=== PATIENT | female | born 1980 | race Caucasian/White ===

== ENCOUNTER 2022-03-10 06:57 | Emergency (ER) | payer OTHER ==
[~2022-03-10] VITALS: Ht 160 cm; Wt 125.0 kg
[2022-03-10 07:33] LABS: Mean Corpuscular Volume 84.3 fL (80.0-100.0)
[2022-03-10 07:37] LABS: Basophils # (auto) 0 10 ^3/uL (0-0.2); Basophils % (auto) 0.5 % (0.0-2.0); Eosinophils # (auto) 0.4 10 ^3/uL (0-0.8); Eosinophils % (auto) 3.8 % (0.0-7.0); Hematocrit 37.9 % (36.0-46.0); Hemoglobin 12.2 g/dL (12.2-16.2); Lymphocytes # (auto) 3.5 10 ^3/uL (0.4-5.4); Lymphocytes % (auto) 37.7 % (10.0-50.0); Mean Corpuscular Hemoglobin 27.2 pg (28.0-32.0); Mean Corpuscular Hgb Conc. 32.3 g/dL (32.0-36.0); Monocytes # (auto) 0.6 10 ^3/uL (0-1.3); Monocytes % (auto) 6.8 % (0.0-12.0); Neutrophils # (auto) 4.7 10 ^3/uL (1.6-8.6); Neutrophils % (auto) 51.2 % (37.0-80.0); Red Cell Distribution Width 15.3 % (11.8-14.3); White Blood Cell 9.2 10^3/uL (4.4-10.8)
[2022-03-10] MEDS ORDERED: IOHEXOL 350 MG/ML 100ML IJ ONE (07:42)
[2022-03-10 07:44] LABS: Albumin 3.3 g/dL (3.4-5.0); Calcium 9.1 mg/dL (8.5-10.1); Magnesium 1.9 mg/dL (1.6-2.6); Potassium 4.2 mmol/L (3.5-5.1)
[2022-03-10 07:46] LABS: BUN/Creatinine Ratio 21.7
[2022-03-10 07:48] LABS: Bilirubin, Total 0.2 mg/dL (0.2-1.0); Total Protein 7.4 g/dL (6.4-8.2)
[2022-03-10 08:30] LABS: Urine Bacteria MANY /hpf (None Seen); Urine Blood 3+ /uL (Negative); Urine Specific Gravity 1.018 (1.001-1.035); Urine WBC 2257 /hpf (0 - 5); Urine WBC Clumps PRESENT /hpf (None Seen)
[2022-03-10] MEDS ORDERED: CEPHALEXIN 250 MG CAP PO ONE (09:30)
[2022-03-10] MEDS ORDERED: CEPH-322 PO (09:40)
[2022-03-10 10:42] VITALS: BP 125/84
== END 2022-03-10 10:48 | disposition home or self-care (01) ==
LOC: ER 07:02
DX: F41.9 Anxiety disorder, unspecified (principal); N39.0 Urinary tract infection, site not specified; F32.9 Major depressive disorder, single episode, unspecified; I10 Essential (primary) hypertension; Z88.6 Allergy status to analgesic agent; Z90.710 Acquired absence of both cervix and uterus; Z90.49 Acquired absence of other specified parts of digestive tract; Z98.890 Other specified postprocedural states
CPT/HCPCS: 36415; 71045; 71275; 80053; 81001; 83735; 83880; 84484; 85025; 93005; 99285; Q9967

== ENCOUNTER 2024-12-22 14:41 | Inpatient (IN) | payer OTHER ==
[~2024-12-22] VITALS: Ht 160 cm; Wt 101.1 kg
[~2024-12-22 14:41] MED LIST: CEPH250C PO
[2024-12-22] MEDS ORDERED: ACETAMINOPHEN 325 MG TAB PO PRN (17:30)
[2024-12-22] MEDS ORDERED: HYDROcodone-ACET 5/325MG TAB PO PRN (17:30)
[2024-12-22] MEDS: SODIUM CHLORIDE 0.9% 1,000 ML IV SCH (17:44)
--- NOTE | 2024-12-22 17:45 | DVHHP2 ---
History of Present Illness Reason for Visit: right flank pain History of Present Illness Lauryn Walker is a 44-year-old female with past medical history of depression, who was transferred from [facility] for higher level of care due to bilateral, obstructing, staghorn, renal calculi. Patient states she has been having flank pain for a few months. She has not been able to seek medical help due to being homeless. The pain became too severe causing her to go to [facility]. Psych: Depression Past Surgical History: Appendectomy, Hysterectomy Smoke: No ALCOHOL: none Drugs: None Lives: Homeless Review of Systems Constitutional: No: Fever, Chills, Sweats, Weakness, Malaise, Other Eyes: No: Pain, Vision change, Conjunctivae inflammation, Eyelid inflammation, Other, Redness ENT: No: Ear pain, Ear discharge, Nose pain, Nose discharge, Nose congestion, Mouth pain, Mouth swelling, Throat pain, Throat swelling, Other Respiratory: No: Cough, Dry, Shortness of breath, SOB with excertion, Wheezing, Hemoptysis, Pleuritic Pain, Sputum, Wheezing, Other Cardiovascular: No: Chest Pain, Palpitations, Orthopnea, Paroxysmal Noc. Dyspnea, Edema, Lt Headedness, Other Gastrointestinal: Nausea; No: Vomiting, Abdominal Pain, Diarrhea, Constipation, Melena, Hematochezia, Other Genitourinary: No Dysuria, No Frequency, No Incontinence, No Hematuria, No Retention, No Other Musculoskeletal: back pain (risght and left flank pain); No: other, neck pain, shoulder pain, arm pain, hand pain, leg pain, foot pain Skin: No: Rash, Lesions, Jaundice, Bruising, Other Neurological: No: Weakness, Numbness, Incoordination, Change in speech, Confusion, Seizures, Other Allergies: Coded Allergies: Acetaminophen (Verified Allergy, Mild, RASH, 03/10/22) Ibuprofen (Verified Allergy, Mild, RASH, 03/10/22) Exam General Appearance: Alert, Oriented X3, Cooperative HEENT: Atraumatic, PERRLA, Mucous membr. moist/pink Respiratory: Clear to auscultation, Normal air movement Cardiovascular: Normal S1, Normal S2 Abdominal: Normal bowel sounds Extremities: No clubbing, No cyanosis, No edema, Normal pulses, No tenderness/swelling Skin: No rashes, No breakdown, No significant lesion Neuro: Normal gait, Normal speech, Strength at 5/5 X4 ext Psych/Mental Status: Mental status NL, Mood NL Labs/Xrays CBC, CMP, PT/PTT ordered and pending, Chest X-Ray ordered and pending, SEPSIS Sepsis Screen Physician Orders Kub Abdomen Single View (12/22/24 14:54) Npo After Midnight (12/22/24 17:03) Npo (Nothing By Mouth) Diet (12/23/24 Breakfast) * Radiologist Consult (12/22/24 17:03) Obtain Consent For: (12/22/24 17:03) Obtain Consent For Anesthesia (12/22/24 17:03) Admit (12/22/24 17:30) Code Status (12/22/24 17:30) 0.9% Ns 1000 Ml (12/22/24 17:30) Hydrocodone-Acet 5/325mg Tab (Renner 5/32 (12/22/24 17:30) Ondansetron Hcl (Zofran) (12/22/24 17:30) Docusate Sodium Capsule (Colace Capsule) (12/22/24 17:30) Complete Blood Count (12/23/24 04:00) Comprehensive Metabolic Panel (12/23/24 04:00) Condition: Serious (12/22/24 17:30) Acetaminophen Tablet (Tylenol Tablet) (12/22/24 17:30) * Urology Consult (12/22/24 17:30) Assessment/Plan Assessment/Plan Assessment: Hydronephrosis with renal and ureteral calculus obstruction, Bilateral hydronephrosis, Bilateral obstructing renal calculi, Depression, Plan: Admit to Med-Surg, Urology consult, IV hydration, Pain management, PT/PTT, Regular diet, NPO after midnight, Plan discussed with: Patient My Orders Orders - SKYLER CUBA MANAGEMENT DEVELOPER Procedure Category Date Status Time Admit ADMIT 12/22/24 Transmitted 17:30 Code Status CODE 12/22/24 Transmitted 17:30 0.9% Ns 1000 Ml PHA 12/22/24 Transmitted 17:30 Hydrocodone-Acet PHA 12/22/24 Transmitted 5/325mg Tab (Renner 17:30 Ondansetron Hcl PHA 12/22/24 Transmitted (Zofran) 17:30 Docusate Sodium PHA 12/22/24 Transmitted Capsule (Colace 17:30 Complete Blood Count LAB 12/23/24 Verified 04:00 Comprehensive LAB 12/23/24 Verified Metabolic Panel 04:00 Condition: Serious ALEK 12/22/24 Transmitted 17:30 Acetaminophen Tablet PHA 12/22/24 Transmitted (Tylenol Tablet) 17:30 * Urology Consult CONS 12/22/24 Transmitted 17:30 Date of Service: Dec 22, 2024 Billing Provider: SKYLER CUBA Common Visit Codes: [id number] INP/OBS CARE (MOD) SKYLER CUBA Dec 22, 2024 17:45
[2024-12-22] MEDS: SODIUM CHLORIDE 0.9% 1,000 ML IV ONE (18:12)
[2024-12-22] MEDS: HYDROmorphone HCL 2 MG/ML VL/or syr IV PRN (18:20)
--- NOTE | 2024-12-22 18:40 | DVHINCON2 ---
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 Pt has had flank pain x 2 + weeks. No fevers or urinary complaints. Home Meds Active Scripts Cephalexin (KEFLEX CAPSULE) 250 Mg Cp, 250 MG PO QID for 7 Days, #28 TAB Prov:TRESSA PARRA MD 03/10/22 Past Medical History Patient Family History: Patient reports no known family medical history. Review of Systems Genitourinary: Pain H&P Exam Vital Signs Vital Signs Date Time Temp Pulse Resp B/P (MAP) Pulse Ox O2 Delivery O2 Flow Rate FiO2 12/22/24 18:20 82 17 131/87 12/22/24 17:12 Room Air* 0 21 General Appeara: Well developed, Well nourished, Normal Appearance, Obese Neuro/Mental St: Alert, Oriented Appearance: Appropriate appearance, Appropriate insight Eye contact/ Speech: Cooperative, Good eye contact, Normal speech Skin Exam: Normal inspection, Normal color, Warm/dry Assessment/Plan Problem List: (1) Staghorn kidney stones (2) Renal colic, bilateral Plan consult IR for left PCNL access NPO after midnight consent for left percutaneous nephrolithotomy Plan discussed with: Patient, Other SHAQ CABRERA BLUEPRINT DUPLICATOR Dec 22, 2024 18:40
[2024-12-22 19:06] LABS: Hematocrit 32.4 % (36.0-46.0); Hemoglobin 10.4 g/dL (12.2-16.2); Mean Corpuscular Hemoglobin 27.3 pg (28.0-32.0); Mean Corpuscular Volume 85.0 fL (80.0-100.0); Nucleated Red Blood Cells % 0.5 %
[2024-12-22 19:20] LABS: INR 1.03 (0.9-1.15); Partial Thromboplastin Time 25.6 SEC (24.5-34.5); Prothrombin Time 10.9 sec (9.3-11.8)
[2024-12-22 19:24] LABS: Albumin 3.4 g/dL (3.2-4.8); Alkaline Phosphatase 103 U/L (46-116); Anion Gap 8 (5-15); BUN/Creatinine Ratio 7.1 (10.0-20.0); Carbon Dioxide 28 mmol/L (20-31); Chloride 103 mmol/L (98-107); Sodium 139 mmol/L (136-145); Total Protein 7.2 g/dL (5.7-8.2)
[2024-12-22 19:37] LABS: Alanine Aminotransferase 67 U/L (7-40); Bilirubin, Total 0.2 mg/dL (0.2-1.0); Blood Urea Nitrogen 7 mg/dL (9-23); Calcium 8.4 mg/dL (8.7-10.4); Glucose 150 mg/dL (74-106); Potassium 3.4 mmol/L (3.5-5.1)
--- NOTE | 2024-12-22 19:56 | DVH ---
CHEST RADIOGRAPH Indication: Pre-Op Technique: Single frontal view of the chest was obtained COMPARISON: XR CHEST 1 VIEW on DOS: 12/18/24, CHEST PORTABLE on DOS: 03/10/22, CXRP on DOS: 03/10/22 FINDINGS: Lines and Tubes: None Lungs: Clear Pleura: No effusion. No pneumothorax. Cardiomediastinal contours: Unremarkable Bones: Unremarkable IMPRESSION: No acute disease.
--- NOTE | 2024-12-22 19:56 | DVH ---
Exam: XY KUB ABDOMEN SINGLE VIEW Indication: Bilateral staghorn stones Comparison: XR CHEST 1 VIEW on DOS: 12/18/24, XR NEPHROSTOMY TUBE PLACEMENT on DOS: 12/18/24, CT ABD/ PEL on DOS: 12/18/24, CT ABD/PEL W - IV on DOS: 12/04/24, CT ANGIO CHEST CONTRAST on DOS: 03/10/22 Technique: 1 radiographic views of the abdomen. Findings: Nonobstructive bowel gas pattern noted. Moderate volume colonic stool. There is no definite evidence for pneumoperitoneum. Staghorn calculi overlying bilateral renal shadows. Impression: Staghorn calculi overlying bilateral renal shadows.
[2024-12-22 20:00] VITALS: PULSE 86; RESP 17; O2SAT 97
[2024-12-22 21:00] VITALS: BP 162/97; PULSE 86; RESP 17; TEMP 98.2; O2SAT 97
[2024-12-23] VITALS (10 sets, daily range): BP systolic 138–162; BP diastolic 90–102; PULSE 74–101; RESP 14–20; TEMP 97.5–98.6; O2SAT 91–100
[2024-12-23 07:49] LABS: Albumin 3.4 g/dL (3.2-4.8); Alkaline Phosphatase 98 U/L (46-116); Anion Gap 10 (5-15); BUN/Creatinine Ratio 6.2 (10.0-20.0); Carbon Dioxide 28 mmol/L (20-31); Chloride 102 mmol/L (98-107); Glucose 85 mg/dL (74-106); Potassium 3.6 mmol/L (3.5-5.1); Sodium 140 mmol/L (136-145); Total Protein 7.3 g/dL (5.7-8.2)
[2024-12-23 07:50] LABS: Alanine Aminotransferase 59 U/L (7-40); Bilirubin, Total 0.2 mg/dL (0.2-1.0); Blood Urea Nitrogen 6 mg/dL (9-23); Calcium 8.6 mg/dL (8.7-10.4)
[2024-12-23 07:51] LABS: Hematocrit 31.7 % (36.0-46.0); Hemoglobin 10.5 g/dL (12.2-16.2); Mean Corpuscular Hemoglobin 27.1 pg (28.0-32.0); Mean Corpuscular Volume 81.9 fL (80.0-100.0); Nucleated Red Blood Cells % 0.1 %
--- NOTE | 2024-12-23 08:10 | ECG ---
[facility] Test Date: 2024-12-22 Test Time: 18:00:30 Pat Name: JAVIER VIEYRA Department: Room: 0250 B Gender: F Manager Medical Device: [id number] : 1980 Requested By: SKYLER CUBA Order Number: [id number] Reading MD: Emmett Cervantes Measurements Intervals [place] Rate: 87 P: 47 PA: 141 QRS: -16 QRSD: 96 T: 2 QT: 365 QTc: 439 Interpretive Statements Sinus rhythm Borderline left axis deviation Abnormal R-wave progression, late transition Nonspecific T abnormalities, diffuse leads Electronically Signed On 12-23-2024 13:08:48 PST by Emmett Cervantes Please click the below link to view image of tracing.
--- NOTE | 2024-12-23 13:04 | DVHPN2 ---
Subjective In bed with no pain Reviewed: H&P Changes from previous H/P or p: No Changes Eyes: No Pain, No Vision change, No Conjunctivae inflammation, No Eyelid inflammation, No Other, No Redness ENT: No Ear pain, No Ear discharge, No Nose pain, No Nose discharge, No Nose congestion, No Mouth pain, No Mouth swelling, No Throat pain, No Throat swelling, No Other Cardiovascular: No Chest Pain, No Palpitations, No Orthopnea, No Paroxysmal Noc. Dyspnea, No Edema, No Lt Headedness, No Other Respiratory: No Cough, No Dry, No Shortness of breath, No SOB with excertion, No Wheezing, No Hemoptysis, No Pleuritic Pain, No Sputum, No Other Gastrointestinal: Nausea; No Vomiting, No Abdominal Pain, No Diarrhea, No Constipation, No Melena, No Hematochezia, No Other Genitourinary: No Dysuria, No Frequency, No Incontinence, No Hematuria, No Retention, No Other Musculoskeletal: No other, No neck pain, No shoulder pain, No arm pain; back pain (risght and left flank pain); No hand pain, No leg pain, No foot pain Skin: No Rash, No Lesions, No Jaundice, No Bruising, No Other Objective Vitals Vital Signs Date Time Temp Pulse Resp B/P (MAP) Pulse Ox O2 Delivery O2 Flow Rate FiO2 12/23/24 11:56 89 18 141/94 12/23/24 09:00 97.8 98 97.8 12/23/24 07:44 Nasal Cannula* 1 24 Intake/Output Intake and Output 12/23/24 07:00 Intake Total 1020 ml Balance 1020 ml Intake Oral 10 ml IV Total 1010 ml # Voids 2 General Appearance: Alert, Oriented X3 HEENT: Atraumatic Lungs: Clear to auscultation Cardiovascular: Regular rate, Normal S1, Normal S2 Abdomen: Normal bowel sounds Medications Current Medications Medications Dose Ordered Sig/Heidi Route Start Time Stop Time Status Last Admin Dose Admin Sodium Chloride 1,000 ml @ 120 mls/hr Q8H20M IV 12/22/24 17:30 12/22/24 17:44 120 MLS/HR Acetaminophen/ Hydrocodone Bitart 1 tab Q4HP PRN PO 12/22/24 17:30 Hold Ondansetron HCl 4 mg Q4HP PRN IV 12/22/24 17:30 Docusate Sodium 100 mg BIDPRN PRN PO 12/22/24 17:30 Acetaminophen 650 mg Q6HP PRN PO 12/22/24 17:30 Hold Hydromorphone HCl 2 mg Q4HPRN PRN IV 12/22/24 17:45 12/23/24 10:21 2 MG Laboratory Results Laboratory Tests 12/23/24 05:52 Chemistry Test 12/22/24 18:24 12/23/24 05:52 Albumin 3.4 g/dL (3.2-4.8) 3.4 g/dL (3.2-4.8) Calcium Level 8.4 mg/dL (8.7-10.4) L 8.6 mg/dL (8.7-10.4) L Total Protein 7.2 g/dL (5.7-8.2) 7.3 g/dL (5.7-8.2) Coagulation Test 12/22/24 18:24 Prothrombin Time 10.9 sec (9.3-11.8) Prothrombin Time INR 1.03 (0.9-1.15) Activated Partial Thromboplast Time 25.6 SEC (24.5-34.5) LFT Test 12/22/24 18:24 12/23/24 05:52 Alanine Aminotransferase (ALT) 67 U/L (7-40) H 59 U/L (7-40) H Alkaline Phosphatase 103 U/L (46-116) 98 U/L (46-116) Aspartate Amino Transferase (AST) 47 U/L (13-40) H 38 U/L (13-40) Total Bilirubin 0.2 mg/dL (0.2-1.0) 0.2 mg/dL (0.2-1.0) Urinalysis Test 12/22/24 21:40 Urine Test Negative (Negative) Assessment/Plan Assessment/Plan Hydronephrosis with renal and ureteral calculus obstruction, Bilateral hydronephrosis, Bilateral obstructing renal calculi, Depression, Continue IV abx per urology going nephrolithotomy Plan discussed with: Patient Date of Service: Dec 23, 2024 Billing Provider: SUSAN WHITE MD Common Visit Codes: [id number] INP/OBS CARE(HIGH) SUSAN WHITE MD Dec 23, 2024 13:04
[2024-12-23] MEDS: MIDAZOLAM HCL 2MG/2ML 2ml VIAL (1mg/ml) ONE (13:08)
[2024-12-23] MEDS: IODIXANOL 320MG/ML 100ML BTL IV ONE (13:08)
[2024-12-23] MEDS: fentaNYL CITRATE 100 MCG/2 ML VL ONE (13:09)
[2024-12-23] MEDS: LIDOCAINE 2%HCL (LOCAL ANESTH.) INJ 20ML MDV ONE (13:09)
[2024-12-23] MEDS: CIPROFLOXACIN 400MG/200ML 200 ML IV ONE (13:57)
[2024-12-23] MEDS ORDERED: MEPERIDINE HCL (25 MG/ML) 1ML VIAL ONE (14:18)
[2024-12-23] MEDS ORDERED: MIDAZOLAM HCL 2MG/2ML 2ml VIAL (1mg/ml) ONE (14:19)
--- NOTE | 2024-12-23 14:20 | DVH ---
US US GUIDANCE FOR NEEDLE PLACEME, HISTORY: NEPHROSTOMY TUBE INSERTION TECHNICAL DATA: Transverse and longitudinal sonographic images were obtained of the left kidney. COMPARISON: CT ABD/PEL on DOS: 12/18/24, CT ABD/PEL W - IV on DOS: 12/04/24, CT ANGIO CHEST CONTRAST on DOS: 03/10/22 FINDINGS: IMPRESSION: Ultrasound guidance was used for a nephroureteral catheter placement for PCNL.
[2024-12-23] MEDS ORDERED: MORPHINE SULFATE 4 MG/ML SYR/VIAL IV PRN (14:30)
[2024-12-23] MEDS ORDERED: ONDANSETRON HCL 4 MG/2 ML VIAL IV PRN (14:30)
[2024-12-23] MEDS ORDERED: hydrALAZINE HCL 20 MG/ML VL IV PRN (14:30)
[2024-12-23] MEDS ORDERED: MIDAZOLAM HCL 2MG/2ML 2ml VIAL (1mg/ml) IV PRN (14:30)
[2024-12-23] MEDS ORDERED: fentaNYL CITRATE 100 MCG/2 ML VL ONE (14:53)
--- NOTE | 2024-12-23 15:06 | DVH ---
XY PERCUTANEOUS NEPHROSTOMY, HISTORY: Left staghorn kidney stone access for PCNL . PROCEDURE: Informed consent was obtained. The patient was placed on the fluoroscopic table in a prone position and IV sedation administered. The left flank was prepped with chlorhexidine which was allowed to dry and draped in the usual sterile fashion. Time out was performed. and the soft tissues infiltrated with 1% lidocaine local anesthetic. Under ultrasound guidance, a 21 gauge Accu Stick needle was advanced into a dilated upper pole posterior calyx and a contrast nephrostogram performed. Over a mandril wire, exchange was made to a non-vascular access set, through which was advanced an 0.035 wire. Wire and catheter were advanced down the ureter and into the bladder. A 5 Syriac KMP catheter advanced into the bladder. The catheter was secured in place. A sterile dressing was applied. No immediate complication was identified. Dap 100 FLUOROSCOPY TIME: 4.0 minutes. CONTRAST USED: 20 mL. SEDATION: Dr. Rodrigo Maurice was personally responsible for the administration of moderate sedation during the procedure performed, including the use of an independent trained observer who had no other duties during the procedure. The drugs utilized were IV fentanyl and versed (see nursing log for details). The total time of supervision by the attending physician was approximately 30 minutes. FINDINGS: Left staghorn stone in the renal pelvis. New 5 hungarian nephroureteral catheter via a posterior upper pole calyceal access, with distal end in the bladder. Contrast flows freely into the bladder. IMPRESSION: Left renal staghorn kidney stone status post placement of 5 hungarian left percutaneous nephroureteral sheath access for subsequent planned PCNL.
[2024-12-23] MEDS: IOHEXOL 300 MG/ML 100ML BOTTLE IJ ONE (15:15)
--- NOTE | 2024-12-23 15:45 | DVHNC2 ---
Procedure - PERATIVE REPORT Pre-op. Diagnosis: Renal Calculi, LEFT Post-op. Diagnosis: Same as pre-op diagnosis Operation: Percutaneous Nephrolithotripsy, LEFT Nephrostomy tube placement, LEFT Fluoroscopy Nephroscopy with laser lithotripsy and stone basket extraction, LEFT Anesthesia: General Indications: Patient presented with large symptomatic bilateral staghorn calculi. Left percutaneous access was obtained per interventional radiology service. The indications, risks, complications, alternatives and benefits of percutaneous nephrolithotomies (PCNL)were discussed with patient. All questions were encouraged and answered. Patient was aware of specific risks/complications, including but not limited to infections, bleeding, pain, renal injury, persistent stone disease requiring additional, possible other procedures such as laser or extracorporeal shockwave lithotripsies. Patient was also aware of alternatives of this surgery including open nephrolithotomy, ESWL, endoscopic retrograde laser lithotripsy and stent placement with chronic antibiotic management. Patient was competent and understood these risks and benefits and elected to proceed. Details of Procedure: Patient was taken to the operating room and underwent general endotracheal intubation. 16Fr Calderon catheter was placed while in supine position. Next, appropriate prone positioning was accomplished as well as the area of flank where the temporary nephrostomy tube, placed by Interventional Radiology, was included in the wide prepping and draping. Under fluoroscopy, the sensor guidewire was placed through the nephrostomy tube and positioned into the bladder. Dual lumen catheter was placed over the Sensor tip guidewire and second superstiff Amplatz guidewire was placed into the bladder as the safety guidewire. Next nephrostomy tract was dilated with UroMax balloon dilation system, followed by 26 F sheath placement. Rigid nephroscope was used to access the cavity where the large renal stones were identified in the mid/lower pole and renal pelvis. Ultrasonic lithoclast device was used to fragment and suction the stones. Once the stones were small enough, a three prong grasper was used to take them out. The torque on the kidney was too great for the nephroscope to reach the lower calyceal stones. At this point, a flexible cystoscope was used to evaluate the proximal ureter and no stones were identified. The left lower pole calyceal stones were identified and laser lithotripsy was performed. But due to bleeding, the visual attention was difficult and procedure was halted. Under fluoroscopy, the Amplatz guidewire was removed keeping the Senor guidewire in place through which a 16 Fr Osage catheter was placed and positioned over the guidewire into the renal pelvis in an antegrade fashion. Proper placement was verified. The subcutaneous tissue and the skin were closed with Two 0 chromic suture. Patient was placed in supine, extubated and taken to RR in stable condition. Calderon catheter remained in place. All counts were correct. Specimens: Stone fragments Complications: None Findings: large Staghorn calculus treated successfully with PCNL EBL: 50 ml Notes: The patient will need to undergo left endoscopic laser lithotripsy with renal evacuation using suction catheter sheath in 4 weeks LILA PIERRE MD Dec 23, 2024 15:45
[2024-12-23] MEDS: HYDROmorphone HCL 2 MG/ML VL/or syr IV PRN (16:13)
[2024-12-23] MEDS ORDERED: SUGAMMADEX 200mg/2ml Vial (100MG/ML) IV ONE (16:34)
[2024-12-23] MEDS: HYDROmorphone HCL 2 MG/ML VL/or syr ONE (18:10)
[2024-12-23] MEDS: KETOROLAC TROMETH 30 MG/ML 1ML VIAL IV ONE (18:10)
[2024-12-23] MEDS: SUCCINYLCHOLINE CHLORIDE 20 MG/ML 10ML VIAL IV ONE (18:10)
--- NOTE | 2024-12-23 18:16 | DVH ---
C-ARM FLUOROSCOPY: PROCEDURE: Laser lithotripsy and stent place FLUOROSCOPY TIME: 277.4 seconds Air Kerma: 89.89 mgy FINDINGS: Spot intraoperative C arm radiographs demonstrating lithotripsy and stent placement. IMPRESSION: 1. Please refer to surgical report for detailed findings. 2. Only 1 image received is the dose summary sheet
--- NOTE | 2024-12-23 20:07 | DVH ---
Exam: XY KUB ABDOMEN SINGLE VIEW Indication: LEFT LASER LITHO AND STENT PLACEMENT Comparison: XY KUB ABDOMEN SINGLE VIEW on DOS: 12/22/24, CT ABD/PEL on DOS: 12/18/24 Technique: Single Fluoroscopic view of the abdomen. Findings /impression: Placement of a right percutaneous nephrostomy tube. Opacification of the right renal collecting system demonstrating moderate hydronephrosis. Total radiation dose: 89.89 mGy
[2024-12-24] VITALS (7 sets, daily range): BP systolic 110–137; BP diastolic 78–90; PULSE 88–95; RESP 16–20; TEMP 97.7–98.5; O2SAT 94–99
--- NOTE | 2024-12-24 12:08 | DVHPN2 ---
Subjective s/p nephrostomy and having severe pain this morning Reviewed: H&P Changes from previous H/P or p: No Changes Eyes: No Pain, No Vision change, No Conjunctivae inflammation, No Eyelid inflammation, No Other, No Redness ENT: No Ear pain, No Ear discharge, No Nose pain, No Nose discharge, No Nose congestion, No Mouth pain, No Mouth swelling, No Throat pain, No Throat swelling, No Other Cardiovascular: No Chest Pain, No Palpitations, No Orthopnea, No Paroxysmal Noc. Dyspnea, No Edema, No Lt Headedness, No Other Respiratory: No Cough, No Dry, No Shortness of breath, No SOB with excertion, No Wheezing, No Hemoptysis, No Pleuritic Pain, No Sputum, No Other Gastrointestinal: Nausea; No Vomiting, No Abdominal Pain, No Diarrhea, No Constipation, No Melena, No Hematochezia, No Other Genitourinary: No Dysuria, No Frequency, No Incontinence, No Hematuria, No Retention, No Other Musculoskeletal: No other, No neck pain, No shoulder pain, No arm pain; back pain (risght and left flank pain); No hand pain, No leg pain, No foot pain Skin: No Rash, No Lesions, No Jaundice, No Bruising, No Other Objective Vitals Vital Signs Date Time Temp Pulse Resp B/P (MAP) Pulse Ox O2 Delivery O2 Flow Rate FiO2 12/24/24 09:00 98.3 94 20 136/86 (103) 94 98.3 12/24/24 07:42 Nasal Cannula* 2 28 Intake/Output Intake and Output 12/24/24 05:00 Intake Total 1300 ml Output Total 600 ml Balance 700 ml Intake Oral 200 ml IV Total 1100 ml Output Urine Total 600 ml General Appearance: Alert, Oriented X3 HEENT: Atraumatic Lungs: Clear to auscultation Cardiovascular: Regular rate, Normal S1, Normal S2 Abdomen: Normal bowel sounds Medications Current Medications Medications Dose Ordered Sig/Heidi Route Start Time Stop Time Status Last Admin Dose Admin Sodium Chloride 1,000 ml @ 120 mls/hr Q8H20M IV 12/22/24 17:30 12/23/24 22:57 120 MLS/HR Acetaminophen/ Hydrocodone Bitart 1 tab Q4HP PRN PO 12/22/24 17:30 Hold Ondansetron HCl 4 mg Q4HP PRN IV 12/22/24 17:30 Docusate Sodium 100 mg BIDPRN PRN PO 12/22/24 17:30 Acetaminophen 650 mg Q6HP PRN PO 12/22/24 17:30 Hold Hydromorphone HCl 2 mg Q4HPRN PRN IV 12/22/24 17:45 12/24/24 08:17 2 MG Laboratory Results Laboratory Tests 12/23/24 05:52 Urinalysis Test 12/22/24 21:40 Urine Test Negative (Negative) Assessment/Plan Assessment/Plan Hydronephrosis with renal and ureteral calculus obstruction, Bilateral hydronephrosis, Bilateral obstructing renal calculi, Depression, Continue IV abx s/p nephrostomy and nephrolithotomy with severe pain Dispo: Possible DC tomorrow Plan discussed with: Patient My Orders Orders - SUSAN WHITE MD Procedure Category Date Status Time Kub Abdomen Single XY 12/23/24 Resulted View 15:43 C Arm Fluoroscopy Up XY 12/23/24 Resulted To 60min 15:46 Date of Service: Dec 24, 2024 Billing Provider: SUSAN WHITE MD Common Visit Codes: [id number] INP/OBS CARE(HIGH) SUSAN WHITE MD Dec 24, 2024 12:08
[2024-12-24] MEDS ORDERED: PROPOFOL 10 MG/ML 20 ML IV ONE (13:43)
[2024-12-24] MEDS ORDERED: ROCURONIUM 10MG/ML 10ML VIAL IV ONE (13:44)
[2024-12-25] VITALS (8 sets, daily range): BP systolic 132–179; BP diastolic 87–110; PULSE 74–102; RESP 16–21; TEMP 97.9–98.6; O2SAT 95–100
--- NOTE | 2024-12-25 09:37 | DVHPN2 ---
Subjective s/p nephrostomy and having severe pain this morning Reviewed: H&P Changes from previous H/P or p: No Changes Eyes: No Pain, No Vision change, No Conjunctivae inflammation, No Eyelid inflammation, No Other, No Redness ENT: No Ear pain, No Ear discharge, No Nose pain, No Nose discharge, No Nose congestion, No Mouth pain, No Mouth swelling, No Throat pain, No Throat swelling, No Other Cardiovascular: No Chest Pain, No Palpitations, No Orthopnea, No Paroxysmal Noc. Dyspnea, No Edema, No Lt Headedness, No Other Respiratory: No Cough, No Dry, No Shortness of breath, No SOB with excertion, No Wheezing, No Hemoptysis, No Pleuritic Pain, No Sputum, No Other Gastrointestinal: Nausea; No Vomiting, No Abdominal Pain, No Diarrhea, No Constipation, No Melena, No Hematochezia, No Other Genitourinary: No Dysuria, No Frequency, No Incontinence, No Hematuria, No Retention, No Other Musculoskeletal: No other, No neck pain, No shoulder pain, No arm pain; back pain (risght and left flank pain); No hand pain, No leg pain, No foot pain Skin: No Rash, No Lesions, No Jaundice, No Bruising, No Other Objective Vitals Vital Signs Date Time Temp Pulse Resp B/P (MAP) Pulse Ox O2 Delivery O2 Flow Rate FiO2 12/25/24 08:55 98.1 74 16 134/92 (106) 100 98.1 12/25/24 08:10 Nasal Cannula* 3 32 Intake/Output Intake and Output 12/25/24 07:00 Intake Total 2180 ml Output Total 1725 ml Balance 455 ml Intake Oral 780 ml IV Total 1400 ml Output Urine Total 1725 ml General Appearance: Alert, Oriented X3 HEENT: Atraumatic Lungs: Clear to auscultation Cardiovascular: Regular rate, Normal S1, Normal S2 Abdomen: Normal bowel sounds Medications Current Medications Medications Dose Ordered Sig/Heidi Route Start Time Stop Time Status Last Admin Dose Admin Sodium Chloride 1,000 ml @ 120 mls/hr Q8H20M IV 12/22/24 17:30 12/25/24 03:50 120 MLS/HR Acetaminophen/ Hydrocodone Bitart 1 tab Q4HP PRN PO 12/22/24 17:30 Hold Ondansetron HCl 4 mg Q4HP PRN IV 12/22/24 17:30 Docusate Sodium 100 mg BIDPRN PRN PO 12/22/24 17:30 Acetaminophen 650 mg Q6HP PRN PO 12/22/24 17:30 Hold Hydromorphone HCl 2 mg Q4HPRN PRN IV 12/22/24 17:45 12/25/24 06:13 2 MG Laboratory Results Laboratory Tests 12/23/24 05:52 Urinalysis Test 12/22/24 21:40 Urine Test Negative (Negative) Assessment/Plan Assessment/Plan Hydronephrosis with renal and ureteral calculus obstruction, Bilateral hydronephrosis, Bilateral obstructing renal calculi, Depression, Continue IV abx s/p nephrostomy and nephrolithotomy with severe pain IV dilaudid q 3 hours for severe pain Dispo: Possible DC tomorrow if pain is better Plan discussed with: Patient My Orders Orders - SUSAN WHITE MD Procedure Category Date Status Time Stone Analysis Urinary LAB 12/24/24 In Process 15:05 Complete Blood Count LAB 12/25/24 Logged 09:00 Basic Metabolic Panel LAB 12/25/24 Logged 09:00 Basic Metabolic Panel LAB 12/26/24 Verified 05:00 Basic Metabolic Panel LAB 12/27/24 Verified 05:00 Basic Metabolic Panel LAB 12/28/24 Verified 05:00 Basic Metabolic Panel LAB 12/29/24 Verified 05:00 Basic Metabolic Panel LAB 12/30/24 Verified 05:00 Basic Metabolic Panel LAB 12/31/24 Verified 05:00 Basic Metabolic Panel LAB 01/01/25 Verified 05:00 Date of Service: Dec 25, 2024 Billing Provider: SUSAN WHITE MD Common Visit Codes: [id number] INP/OBS CARE(HIGH) SUSAN WHITE MD Dec 25, 2024 09:37
[2024-12-25 10:04] LABS: Hematocrit 29.8 % (36.0-46.0); Hemoglobin 9.6 g/dL (12.2-16.2); Mean Corpuscular Hemoglobin 27.1 pg (28.0-32.0); Mean Corpuscular Volume 84.1 fL (80.0-100.0); Nucleated Red Blood Cells % 0.0 %
[2024-12-25 10:16] LABS: Anion Gap 9 (5-15); Carbon Dioxide 27 mmol/L (20-31); Chloride 105 mmol/L (98-107); Potassium 3.9 mmol/L (3.5-5.1); Sodium 141 mmol/L (136-145)
[2024-12-25 10:17] LABS: Calcium 8.9 mg/dL (8.7-10.4)
[2024-12-25 10:22] LABS: BUN/Creatinine Ratio 9.6 (10.0-20.0); Blood Urea Nitrogen 10 mg/dL (9-23); Glucose 89 mg/dL (74-106)
[2024-12-26] VITALS (9 sets, daily range): BP systolic 131–161; BP diastolic 81–105; PULSE 92–106; RESP 15–20; TEMP 97.6–98.6; O2SAT 91–100
[2024-12-26 07:34] LABS: Chloride 99 mmol/L (98-107); Potassium 3.7 mmol/L (3.5-5.1)
[2024-12-26 07:35] LABS: Anion Gap 8 (5-15); Calcium 9.0 mg/dL (8.7-10.4); Carbon Dioxide 29 mmol/L (20-31)
[2024-12-26 07:37] LABS: Sodium 136 mmol/L (136-145)
[2024-12-26 07:40] LABS: BUN/Creatinine Ratio 8.3 (10.0-20.0)
[2024-12-26 07:53] LABS: Blood Urea Nitrogen 9 mg/dL (9-23); Glucose 117 mg/dL (74-106)
[2024-12-26] MEDS: SODIUM CHLORIDE 0.9% 1,000 ML IV SCH (16:08)
[2024-12-26] MEDS: HYDROmorphone HCL 2 MG/ML VL/or syr IV PRN (16:22)
--- NOTE | 2024-12-26 16:38 | DVH ---
CHEST RADIOGRAPH Indication: SOB Technique: Single frontal view of the chest was obtained Comparison: XY CHEST PORTABLE on DOS: 12/22/24, XR CHEST 1 VIEW on DOS: 12/18/24, CXRP on DOS: 03/10/22 FINDINGS: Lines and Tubes: None Lungs: Element of consolidation lower half of the left lung field. May represent infiltrate atelectasis and/or effusion. Pleura: No effusion. No pneumothorax. Cardiomediastinal contours: Cardiomegaly unchanged Bones: No acute osseous abnormality. IMPRESSION: 1. Consolidation left base with pleural effusion. Findings most likely suggest infection. Recommend follow-up to exclude neoplasm.
--- NOTE | 2024-12-26 17:13 | DVHPN2 ---
Reviewed: H&P Changes from previous H/P or p: No Changes General: Per HPI Eyes: No Pain, No Vision change, No Conjunctivae inflammation, No Eyelid inflammation, No Other, No Redness ENT: No Ear pain, No Ear discharge, No Nose pain, No Nose discharge, No Nose congestion, No Mouth pain, No Mouth swelling, No Throat pain, No Throat swelling, No Other Cardiovascular: No Chest Pain, No Palpitations, No Orthopnea, No Paroxysmal Noc. Dyspnea, No Edema, No Lt Headedness, No Other Respiratory: No Cough, No Dry, No Shortness of breath, No SOB with excertion, No Wheezing, No Hemoptysis, No Pleuritic Pain, No Sputum, No Other Gastrointestinal: Nausea; No Vomiting, No Abdominal Pain, No Diarrhea, No Constipation, No Melena, No Hematochezia, No Other Genitourinary: No Dysuria, No Frequency, No Incontinence, No Hematuria, No Retention, No Other Musculoskeletal: No other, No neck pain, No shoulder pain, No arm pain; back pain (risght and left flank pain); No hand pain, No leg pain, No foot pain Skin: No Rash, No Lesions, No Jaundice, No Bruising, No Other Objective Vitals Vital Signs Date Time Temp Pulse Resp B/P (MAP) Pulse Ox O2 Delivery O2 Flow Rate FiO2 12/26/24 16:22 98 19 140/94 12/26/24 13:00 98.6 91 98.6 12/26/24 08:15 Nasal Cannula* 3 32 Intake/Output Intake and Output 12/26/24 07:00 Intake Total 1750 ml Output Total 2200 ml Balance -450 ml Intake Oral 1750 ml Output Urine Total 1600 ml Other 600 ml General Appearance: Alert, Oriented X3 HEENT: Atraumatic Lungs: Clear to auscultation Cardiovascular: Regular rate, Normal S1, Normal S2 Abdomen: Normal bowel sounds Medications Current Medications Medications Dose Ordered Sig/Heidi Route Start Time Stop Time Status Last Admin Dose Admin Ondansetron HCl 4 mg Q4HP PRN IV 12/22/24 17:30 Docusate Sodium 100 mg BIDPRN PRN PO 12/22/24 17:30 Acetaminophen 650 mg Q6HP PRN PO 12/22/24 17:30 Hold Oxycodone HCl 10 mg Q12HP PO 12/25/24 14:00 12/26/24 10:57 10 MG Sodium Chloride 1,000 ml @ 100 mls/hr Q10H IV 12/26/24 16:00 12/26/24 16:08 100 MLS/HR Hydromorphone HCl 1 mg Q2HPRN PRN IV 12/26/24 16:00 12/26/24 16:22 1 MG Ceftriaxone Sodium 50 ml @ 100 mls/hr DAILY@09 IV 12/27/24 09:00 Ibuprofen 400 mg BID PO 12/26/24 22:00 Future Hold Baclofen 10 mg BID PO 12/26/24 22:00 Trazodone HCl 50 mg HS PO 12/26/24 22:00 Laboratory Results Laboratory Tests 12/25/24 09:35 12/26/24 06:51 Chemistry Test 12/26/24 06:51 Calcium Level 9.0 mg/dL (8.7-10.4) Urinalysis Test 12/22/24 21:40 Urine Test Negative (Negative) Labs and/or images reviewed: Labs reviewed by me, Image(s) reviewed by me Assessment/Plan Assessment/Plan 12/26: Patient was taken for ESWL in had left PCNL nephrostomy tube done on 12/23/2024. Patient has significant pain yesterday, pain continues today. Is also some serosanguineous drainage and leakage around the nephrostomy site which is saturating the packing and dressing. Urology to follow up today. We will maximize pain control. Diagnosis: Hydronephrosis with renal and ureteral calculus obstruction, status post lithotripsy 12/23/24 Bilateral hydronephrosis, status post nephrostomy tube insertion 12/23/2024 Bilateral obstructing renal calculi, Depression, Plan: Continue IV abx s/p nephrostomy and nephrolithotomy with severe pain IV dilaudid q 3 hours for severe pain Dilaudid 1 mg Q 2, scheduled oxycodone, Scheduled Tylenol Scheduled ibuprofen 400 b.i.d. Schedule Protonix IV 40 daily Baclofen 10 mg b.i.d. Trazodone 50 nightly Continue taking other home medications Continue diet Med surge Full Plan discussed with: Patient My Orders Orders - MACIEL BLAIR MD Procedure Category Date Status Time Sodium Chloride 0.9% PHA 12/26/24 In Process 16:00 Hydromorphone PHA 12/26/24 In Process Injection (Dilaudid 16:00 Ceftriaxone 1gm/50ml PHA 12/27/24 In Process (Rocephin) 09:00 Ibuprofen Tablet PHA 12/26/24 In Process (Motrin Tablet) 22:00 Baclofen Tablet PHA 12/26/24 In Process (Liorisal Tablet) 22:00 Trazodone Hcl PHA 12/26/24 In Process (Desyrel) 22:00 Chest Xray 1 View XY 12/26/24 Resulted 15:54 Date of Service: Dec 26, 2024 Billing Provider: MACIEL BLAIR MD Common Visit Codes: [id number] INP/OBS CARE(HIGH) MACIEL BLAIR MD Dec 26, 2024 17:13
--- NOTE | 2024-12-26 18:02 | DVHPN2 ---
Progress Note - Dictate Date Seen: Dec 26, 2024 Has the PT tested + for MRSA If YES, has PT been informed?: No Medical Necessity Reason Pt with a Central, PICC or Fol: Yes The following are medically ne: Calderon Catheter Medical Necessity Reason Postop day 3. Status post left PCNL Subjective Left flank pain vital signs Vital Sign Date Time Temp Pulse Resp B/P (MAP) Pulse Ox O2 Delivery O2 Flow Rate FiO2 12/26/24 17:00 98.3 99 18 131/96 (108) 94 98.3 12/26/24 08:15 Nasal Cannula* 3 32 Total Intake and Output 12/25/24 12/25/24 12/26/24 15:00 23:00 07:00 Intake Total 850 ml 900 ml Output Total 275 ml 825 ml 1100 ml Balance -275 ml 25 ml -200 ml medications Current Medications Medications Dose Ordered Sig/Heidi Route Start Time Stop Time Status Last Admin Dose Admin Ondansetron HCl 4 mg Q4HP PRN IV 12/22/24 17:30 Docusate Sodium 100 mg BIDPRN PRN PO 12/22/24 17:30 Acetaminophen 650 mg Q6HP PRN PO 12/22/24 17:30 Hold Oxycodone HCl 10 mg Q12HP PO 12/25/24 14:00 12/26/24 10:57 10 MG Sodium Chloride 1,000 ml @ 100 mls/hr Q10H IV 12/26/24 16:00 12/26/24 16:08 100 MLS/HR Hydromorphone HCl 1 mg Q2HPRN PRN IV 12/26/24 16:00 12/26/24 16:22 1 MG Ceftriaxone Sodium 50 ml @ 100 mls/hr DAILY@09 IV 12/27/24 09:00 Ibuprofen 400 mg BID PO 12/26/24 22:00 Future Hold Baclofen 10 mg BID PO 12/26/24 22:00 Trazodone HCl 50 mg HS PO 12/26/24 22:00 objective Left nephrostomy tube shows clear urine output, so it was removed laboratory and microbiology Laboratory Tests 12/26/24 06:51 12/25/24 09:35 Test 12/26/24 06:51 Range/Units Serum Glucose 117 H 74-106 mg/dL Problem List Right staghorn calculus Left staghorn calculus status post PCNL Assessment/Plan Left lower pole stone residual Right staghorn calculus Outpatient left ESWL with stent placement to be arranged Plan discussed with: Patient, Other LILA PIERRE MD Dec 26, 2024 18:02
--- NOTE | 2024-12-26 18:07 | DVH ---
Date: 12/26/2024 04:50 PM Examination: XY KUB ABDOMEN SINGLE VIEW History: kidney stones Comparison: XY KUB ABDOMEN SINGLE VIEW on DOS: 12/23/24, XY KUB ABDOMEN SINGLE VIEW on DOS: 12/22/24 TECHNIQUE: Frontal views of the abdomen was obtained. FINDINGS: Bowel gas pattern is unremarkable. 18-19 mm calcification appears that it is filling a calyx. In the right renal. Tubing over the left flank Questionable small calculi caudal to the tubing. The lung bases are unremarkable. No acute osseous abnormality identified. IMPRESSION: 1. Nonobstructive bowel gas pattern. 2. 18 19 mm triangular-shaped calcification over the right kidney most likely a calyceal calculus. 3. Stool throughout the colon. 4. Tube appears to be over the left flank correlate clinically. Questionable small calculi noted caudal to the tubing correlate clinically.
[2024-12-26 18:52] LABS: Urine Protein, UAD 1+ (Negative)
[2024-12-26] MEDS ORDERED: IBUPROFEN 600 MG TAB PO SCH (22:00)
[2024-12-26] MEDS: BACLOFEN 10 MG TAB PO SCH (22:07)
[2024-12-27] VITALS (15 sets, daily range): BP systolic 104–139; BP diastolic 72–96; PULSE 84–112; RESP 15–28; TEMP 95.7–99.1; O2SAT 92–99
[2024-12-27 08:39] LABS: Calcium 8.9 mg/dL (8.7-10.4); Chloride 100 mmol/L (98-107); Potassium 4.1 mmol/L (3.5-5.1)
[2024-12-27 08:40] LABS: Anion Gap 16 (5-15); Carbon Dioxide 20 mmol/L (20-31)
[2024-12-27 08:45] LABS: BUN/Creatinine Ratio 6.1 (10.0-20.0)
[2024-12-27 08:49] LABS: Blood Urea Nitrogen 6 mg/dL (9-23); Glucose 118 mg/dL (74-106); Sodium 136 mmol/L (136-145)
--- NOTE | 2024-12-27 09:50 | DVHPN2 ---
Reviewed: H&P Changes from previous H/P or p: No Changes General: Per HPI Eyes: No Pain, No Vision change, No Conjunctivae inflammation, No Eyelid inflammation, No Other, No Redness ENT: No Ear pain, No Ear discharge, No Nose pain, No Nose discharge, No Nose congestion, No Mouth pain, No Mouth swelling, No Throat pain, No Throat swelling, No Other Cardiovascular: No Chest Pain, No Palpitations, No Orthopnea, No Paroxysmal Noc. Dyspnea, No Edema, No Lt Headedness, No Other Respiratory: No Cough, No Dry, No Shortness of breath, No SOB with excertion, No Wheezing, No Hemoptysis, No Pleuritic Pain, No Sputum, No Other Gastrointestinal: Nausea; No Vomiting, No Abdominal Pain, No Diarrhea, No Constipation, No Melena, No Hematochezia, No Other Genitourinary: No Dysuria, No Frequency, No Incontinence, No Hematuria, No Retention, No Other Musculoskeletal: No other, No neck pain, No shoulder pain, No arm pain; back pain (risght and left flank pain); No hand pain, No leg pain, No foot pain Skin: No Rash, No Lesions, No Jaundice, No Bruising, No Other Objective Vitals Vital Signs Date Time Temp Pulse Resp B/P (MAP) Pulse Ox O2 Delivery O2 Flow Rate FiO2 12/27/24 08:43 107 19 139/96 12/27/24 05:00 98.2 96 98.2 12/26/24 19:40 Nasal Cannula* 3 32 Intake/Output Intake and Output 12/27/24 07:00 Intake Total 1120 ml Output Total 475 ml Balance 645 ml Intake Oral 1120 ml Output Urine Total 475 ml # Voids 3 General Appearance: Alert, Oriented X3 HEENT: Atraumatic Lungs: Clear to auscultation Cardiovascular: Regular rate, Normal S1, Normal S2 Abdomen: Normal bowel sounds Medications Current Medications Medications Dose Ordered Sig/Heidi Route Start Time Stop Time Status Last Admin Dose Admin Ondansetron HCl 4 mg Q4HP PRN IV 12/22/24 17:30 Docusate Sodium 100 mg BIDPRN PRN PO 12/22/24 17:30 Acetaminophen 650 mg Q6HP PRN PO 12/22/24 17:30 Hold Oxycodone HCl 10 mg Q12HP PO 12/25/24 14:00 12/27/24 09:36 10 MG Sodium Chloride 1,000 ml @ 100 mls/hr Q10H IV 12/26/24 16:00 12/27/24 02:00 100 MLS/HR Hydromorphone HCl 1 mg Q2HPRN PRN IV 12/26/24 16:00 12/27/24 08:43 1 MG Ceftriaxone Sodium 50 ml @ 100 mls/hr DAILY@09 IV 12/27/24 09:00 12/27/24 09:36 100 MLS/HR Ibuprofen 400 mg BID PO 12/26/24 22:00 Hold Baclofen 10 mg BID PO 12/26/24 22:00 12/27/24 09:36 10 MG Trazodone HCl 50 mg HS PO 12/26/24 22:00 12/26/24 22:06 50 MG Laboratory Results Laboratory Tests 12/25/24 09:35 12/27/24 07:01 Chemistry Test 12/27/24 07:01 Calcium Level 8.9 mg/dL (8.7-10.4) Urinalysis Test 12/22/24 21:40 12/26/24 16:32 Urine Test Negative (Negative) Urine Color Colorless (Yellow) Urine Clarity Turbid (Clear) H Urine pH 6.0 (5.0-9.0) Urine Specific [place] 1.013 (1.001-1.035) Urine Protein 1+ (Negative) H Urine Ketones Negative (Negative) Urine Blood 3+ /uL (Negative) H Urine Nitrite Negative (Negative) Urine Bilirubin Negative (Negative) Urine Urobilinogen Normal mg/dL (Negative) Urine Leukocyte Esterase 3+ /uL (Negative) Urine RBC 160 /hpf (0 - 4) Urine Microscopic WBC 146 /HPF (0-5) H Urine Squamous Epithelial Cells Few /hpf (<5) Urine Bacteria Few /hpf (None Seen) H Urine Mucus Few (None Seen) Urine Glucose Normal mg/dL (Normal) Labs and/or images reviewed: Labs reviewed by me, Image(s) reviewed by me Assessment/Plan Assessment/Plan 12/26: Patient was taken for ESWL in had left PCNL nephrostomy tube done on 12/23/2024. Patient has significant pain yesterday, pain continues today. Is also some serosanguineous drainage and leakage around the nephrostomy site which is saturating the packing and dressing. Urology to follow up today. We will maximize pain control. 12/27: Urology has remove the nephrostomy and urinary Calderon catheter. Patient to go to bedside commode for urination. Continues to have significant pain and nephrostomy insertion site continuing maximal schedule pain therapy with prn Dilaudid. Patient appears to have left pleural effusion we will repeat x-ray today. Patient requiring 4 L oxygen continue oxygen supplementation with SpO2 goal > 90. We will try some BiPAP prn, pressures 12/5. She is unable to take deep breaths unclear if left pleural effusions related to atelectasis unable to do incentive spirometer as she has significant pain, hoping BiPAP can help. Continue other home medications. She has some mild pitting edema and significant rales, we will try 1 time Lasix 40 IV. Patient's anion gap we will check BMP be [employer] and lactic. Diagnosis: Hydronephrosis with renal and ureteral calculus obstruction, status post lithotripsy 12/23/24 Bilateral hydronephrosis, status post nephrostomy tube insertion 12/23/2024 Bilateral obstructing renal calculi, Depression, Plan: Continue IV abx s/p nephrostomy and nephrolithotomy with severe pain IV dilaudid q 3 hours for severe pain Dilaudid 1 mg Q 2, scheduled oxycodone, Scheduled Tylenol Scheduled ibuprofen 400 b.i.d. Schedule Protonix IV 40 daily Baclofen 10 mg b.i.d. Trazodone 50 nightly Continue taking other home medications Continue diet Med surge Full Plan discussed with: Patient My Orders Orders - MACIEL BLAIR MD Procedure Category Date Status Time Sodium Chloride 0.9% PHA 12/26/24 In Process 16:00 Hydromorphone PHA 12/26/24 In Process Injection (Dilaudid 16:00 Ceftriaxone 1gm/50ml PHA 12/27/24 In Process (Rocephin) 09:00 Ibuprofen Tablet PHA 12/26/24 In Process (Motrin Tablet) 22:00 Baclofen Tablet PHA 12/26/24 In Process (Liorisal Tablet) 22:00 Trazodone Hcl PHA 12/26/24 In Process (Desyrel) 22:00 Chest Xray 1 View XY 12/26/24 Resulted 15:54 Complete Blood Count LAB 12/27/24 Logged 04:00 Date of Service: Dec 27, 2024 Billing Provider: MACIEL BLAIR MD Common Visit Codes: [id number] INP/OBS CARE(HIGH) MACIEL BLAIR MD Dec 27, 2024 09:50
[2024-12-27 10:07] LABS: Hematocrit 32.5 % (36.0-46.0); Hemoglobin 10.4 g/dL (12.2-16.2); Mean Corpuscular Hemoglobin 27.2 pg (28.0-32.0); Mean Corpuscular Volume 84.8 fL (80.0-100.0); Nucleated Red Blood Cells % 0.1 %
[2024-12-27 10:22] LABS: Chloride 99 mmol/L (98-107); Potassium 4.3 mmol/L (3.5-5.1); Sodium 137 mmol/L (136-145)
[2024-12-27 10:23] LABS: Anion Gap 10 (5-15); Carbon Dioxide 28 mmol/L (20-31)
[2024-12-27 10:26] LABS: Calcium 8.4 mg/dL (8.7-10.4)
[2024-12-27 10:28] LABS: BUN/Creatinine Ratio 12.2 (10.0-20.0); Blood Urea Nitrogen 11 mg/dL (9-23)
[2024-12-27 10:30] LABS: Glucose 125 mg/dL (74-106)
--- NOTE | 2024-12-27 10:52 | DVH ---
AP portable chest Comparison: 12/26/2024 CLINICAL INDICATION: SOB FINDINGS: Heart size is enlarged. There is obscuration of the left heart margin and left hemidiaphragm. Prominent bronchovascular markings in the right lower lung zone IMPRESSION: 1. Compared to previous exam signs of increasing pulmonary congestion with probable consolidation/ effusion in the left lower lung zone
[2024-12-27] MEDS: FUROSEMIDE 40 MG/4 ML VIAL IV ONE (10:56)
[2024-12-27] MEDS: IBUPROFEN 600 MG TAB PO SCH (13:30)
[2024-12-27 14:11] LABS: Base Excess 4.8 mmol/L (-2.0-3.0)
[2024-12-27] MEDS: SODIUM CHLORIDE 0.9% 1,000 ML IV SCH (17:42)
[2024-12-27] MEDS: ONDANSETRON HCL 4 MG/2 ML VIAL IV PRN (17:58)
[2024-12-27] MEDS: DOCUSATE SOD 100 MG CAP PO PRN (17:58)
[2024-12-28] VITALS (12 sets, daily range): BP systolic 108–125; BP diastolic 72–89; PULSE 82–106; RESP 17–22; TEMP 96.4–98.8; O2SAT 92–100
[2024-12-28 08:14] LABS: Carbon Dioxide 29 mmol/L (20-31)
[2024-12-28 08:16] LABS: Calcium 9.0 mg/dL (8.7-10.4)
[2024-12-28 08:20] LABS: Glucose 93 mg/dL (74-106)
[2024-12-28 08:21] LABS: BUN/Creatinine Ratio 11.5 (10.0-20.0); Blood Urea Nitrogen 14 mg/dL (9-23)
[2024-12-28 08:52] LABS: Anion Gap 8 (5-15); Chloride 101 mmol/L (98-107); Potassium 3.8 mmol/L (3.5-5.1); Sodium 138 mmol/L (136-145)
--- NOTE | 2024-12-28 12:26 | DVH ---
CLINICAL HISTORY: renal stones TECHNIQUE: CT of the abdomen and pelvis was performed without intravenous contrast. This exam was performed according to our departmental dose optimization program. Up-to-date CT equipment and radiation dose reduction techniques are utilized as appropriate. CTDI: 24.69 DLP: 1403.95 WID: COMPARISON: None FINDINGS: Lower Thorax: Normal-sized heart without pericardial effusion. Mild mitral annular calcifications. There is a small to moderate partially loculated left pleural effusion with consolidation of the left lung base with air bronchograms. Linear right basilar scarring or atelectasis. Liver and Biliary system: Mild hepatomegaly measuring 20 cm craniocaudal. No definite hepatic lesion. Gallbladder is normal caliber. There is no biliary ductal dilatation. Spleen: Unremarkable. Adrenal Glands and Kidneys: Normal adrenal glands. There are bilateral renal calculi including a staghorn calculus in the right renal pelvis measuring at least 2.8 cm on series 5, image 88. Largest nonobstructing left lower pole renal calculus measures 1.5 cm on series 5, image 87. There is mild bilateral hydronephrosis, bilateral urothelial thickening and periureteral soft tissue stranding. No obstructing calculus is seen along the course of the ureters. There is bilateral renal cortical scarring. Pancreas and Retroperitoneum: Grossly normal pancreas. There is mild retroperitoneal lymphadenopathy. Aorta and Major Vessels: Aortoiliac vessels are normal in caliber Bowel, Mesentery and Peritoneal space: Normal caliber small and large bowel. There is no free air or fluid collection. Pelvis: The uterus is present. Urinary bladder is mildly distended. There is no pelvic lymphadenopathy. Abdominal wall and Osseous Structures: Mild lower thoracic and lumbar spondylosis. Prominent disc osteophyte complex at L5-S1 results in moderate [id number]-right bilateral neural foraminal stenosis. No destructive osseous lesion. Tiny fat containing umbilical hernia. IMPRESSION: 1. Prominent bilateral renal calculi including a staghorn calculus in the right renal pelvis. 2. Mild bilateral hydronephrosis, urothelial thickening, and periureteral soft tissue stranding. Superimposed infection could be present to account for this finding. Correlate with urinalysis. 3. No obstructing calculus is seen along the course of the ureters. 4. Small to moderate partially loculated left pleural effusion and consolidation of the left lung base with air bronchograms which could reflect atelectasis and/or pneumonia. 5. Mild hepatomegaly. 6. Prominent disc osteophyte complex at L5-S1 results in moderate avti-[id number]-rhwa-right bilateral neural foraminal stenosis.
--- NOTE | 2024-12-28 13:19 | DVHPN2 ---
Reviewed: H&P Changes from previous H/P or p: No Changes General: Per HPI Eyes: No Pain, No Vision change, No Conjunctivae inflammation, No Eyelid inflammation, No Other, No Redness ENT: No Ear pain, No Ear discharge, No Nose pain, No Nose discharge, No Nose congestion, No Mouth pain, No Mouth swelling, No Throat pain, No Throat swelling, No Other Cardiovascular: No Chest Pain, No Palpitations, No Orthopnea, No Paroxysmal Noc. Dyspnea, No Edema, No Lt Headedness, No Other Respiratory: No Cough, No Dry, No Shortness of breath, No SOB with excertion, No Wheezing, No Hemoptysis, No Pleuritic Pain, No Sputum, No Other Gastrointestinal: Nausea; No Vomiting, No Abdominal Pain, No Diarrhea, No Constipation, No Melena, No Hematochezia, No Other Genitourinary: No Dysuria, No Frequency, No Incontinence, No Hematuria, No Retention, No Other Musculoskeletal: No other, No neck pain, No shoulder pain, No arm pain; back pain (risght and left flank pain); No hand pain, No leg pain, No foot pain Skin: No Rash, No Lesions, No Jaundice, No Bruising, No Other Objective Vitals Vital Signs Date Time Temp Pulse Resp B/P (MAP) Pulse Ox O2 Delivery O2 Flow Rate FiO2 12/28/24 12:50 98.4 99 19 111/79 (90) 97 98.4 12/28/24 08:25 Nasal Cannula* 3 32 Intake/Output Intake and Output 12/28/24 07:00 Intake Total 765 ml Balance 765 ml Intake Oral 715 ml IV Total 50 ml # Voids 2 General Appearance: Alert, Oriented X3 HEENT: Atraumatic Lungs: Clear to auscultation Cardiovascular: Regular rate, Normal S1, Normal S2 Abdomen: Normal bowel sounds Medications Current Medications Medications Dose Ordered Sig/Heidi Route Start Time Stop Time Status Last Admin Dose Admin Ondansetron HCl 4 mg Q4HP PRN IV 12/22/24 17:30 12/27/24 17:58 4 MG Docusate Sodium 100 mg BIDPRN PRN PO 12/22/24 17:30 12/27/24 17:58 100 MG Acetaminophen 650 mg Q6HP PRN PO 12/22/24 17:30 Hold Oxycodone HCl 10 mg Q12HP PO 12/25/24 14:00 12/28/24 10:30 10 MG Hydromorphone HCl 1 mg Q2HPRN PRN IV 12/26/24 16:00 12/28/24 12:03 1 MG Ceftriaxone Sodium 50 ml @ 100 mls/hr DAILY@09 IV 12/27/24 09:00 12/28/24 09:16 100 MLS/HR Baclofen 10 mg BID PO 12/26/24 22:00 12/28/24 09:15 10 MG Trazodone HCl 50 mg HS PO 12/26/24 22:00 12/27/24 21:33 50 MG Ibuprofen 600 mg BID PO 12/27/24 10:00 12/28/24 09:15 600 MG Sodium Chloride 1,000 ml @ 75 mls/hr [id number] IV 12/27/24 16:00 12/27/24 17:42 75 MLS/HR Laboratory Results Laboratory Tests 12/27/24 09:27 12/28/24 06:19 Chemistry Test 12/28/24 06:19 Calcium Level 9.0 mg/dL (8.7-10.4) Urinalysis Test 12/22/24 21:40 12/26/24 16:32 Urine Test Negative (Negative) Urine Color Colorless (Yellow) Urine Clarity Turbid (Clear) H Urine pH 6.0 (5.0-9.0) Urine Specific [place] 1.013 (1.001-1.035) Urine Protein 1+ (Negative) H Urine Ketones Negative (Negative) Urine Blood 3+ /uL (Negative) H Urine Nitrite Negative (Negative) Urine Bilirubin Negative (Negative) Urine Urobilinogen Normal mg/dL (Negative) Urine Leukocyte Esterase 3+ /uL (Negative) Urine RBC 160 /hpf (0 - 4) Urine Microscopic WBC 146 /HPF (0-5) H Urine Squamous Epithelial Cells Few /hpf (<5) Urine Bacteria Few /hpf (None Seen) H Urine Mucus Few (None Seen) Urine Glucose Normal mg/dL (Normal) Blood Gas Results Test 12/27/24 14:05 Arterial Blood pH 7.434 (7.350-7.450) FiO2 % 45.0 Labs and/or images reviewed: Labs reviewed by me, Image(s) reviewed by me Assessment/Plan Assessment/Plan 44-year-old female with past medical history of depression, who was transferred from [facility] for higher level of care due to bilateral, obstructing, staghorn, renal calculi. Patient states she has been having flank pain for a few months. She has not been able to seek medical help due to being homeless. The pain became too severe causing her to go to [facility]. 12/26: Patient was taken for ESWL in had left PCNL nephrostomy tube done on 12/23/2024. Patient has significant pain yesterday, pain continues today. Is also some serosanguineous drainage and leakage around the nephrostomy site which is saturating the packing and dressing. Urology to follow up today. We will maximize pain control. 12/27: Urology has remove the nephrostomy and urinary Calderon catheter. Patient to go to bedside commode for urination. Continues to have significant pain and nephrostomy insertion site continuing maximal schedule pain therapy with prn Dilaudid. Patient appears to have left pleural effusion we will repeat x-ray today. Patient requiring 4 L oxygen continue oxygen supplementation with SpO2 goal > 90. We will try some BiPAP prn, pressures 01/23. She is unable to take deep breaths unclear if left pleural effusions related to atelectasis unable to do incentive spirometer as she has significant pain, hoping BiPAP can help. Continue other home medications. She has some mild pitting edema and significant rales, we will try 1 time Lasix 40 IV. Patient's anion gap we will check BMP be [employer]OOK and lactic 12/28: Patient CT chest abdomen pelvis, concerning for ongoing bilateral hydronephrosis and, also now has a left loculated pleural effusion. We will get pulmonology to see this placing consult for home. We will discuss with the Urology again regarding bilateral hydronephrosis tomorrow. Continue focusing control of pain which is improving. Continue BiPAP which helps patient is significantly better with both pain and breathing.. Creatinine is creeping up. We will stops Ibuprofen continue slow IV fluids. Diagnosis: Hydronephrosis with renal and ureteral calculus obstruction, status post lithotripsy 12/23/24 Bilateral hydronephrosis, status post nephrostomy tube insertion 12/23/2024 Bilateral obstructing renal calculi, Depression, Plan: Continue IV abx s/p nephrostomy and nephrolithotomy with severe pain IV dilaudid q 3 hours for severe pain Dilaudid 1 mg Q 2, scheduled oxycodone, Scheduled Tylenol Scheduled ibuprofen 400 b.i.d. Schedule Protonix IV 40 daily Baclofen 10 mg b.i.d. Trazodone 50 nightly Continue taking other home medications Continue diet Med surge Full code Plan discussed with: Patient My Orders Orders - MACIEL BLAIR MD Procedure Category Date Status Time Sodium Chloride 0.9% PHA 12/27/24 In Process 16:00 * Wound Consult CONS 12/28/24 Transmitted *Consult CONS 12/28/24 Transmitted 13:15 Date of Service: Dec 28, 2024 Billing Provider: MACIEL BLAIR MD Common Visit Codes: [id number] INP/OBS CARE(HIGH) MACIEL BLAIR MD Dec 28, 2024 13:19
--- NOTE | 2024-12-28 14:54 | DVH ---
Bilateral Chest Sonogram Date: 12/28/2024 02:08 PM Clinical history: loculated left pleural effusion Images submitted: 5 Findings /impression: Limited sonographic evaluation of the bilateral chest was performed . Left pleural effusion is present. No right pleural effusion
[2024-12-28] MEDS: methylPREDNISolone SOD SUCC 40 MG/ML VL IV ONE (18:24)
--- NOTE | 2024-12-28 19:29 | DVH ---
EXAM: US BLADDER INDICATION: bladder ultrasound ureteral jets TECHNIQUE: Grayscale and color Doppler sonographic imaging evaluation of the region of concern. COMPARISON: CT CT AB PEL WO CON-NO ORAL OR IV on DOS: 12/28/24 FINDINGS: Bilateral ureteral jets are identified. Prevoid bladder volume 514 mL. Bladder wall measures 2 mm within normal limits IMPRESSION: 1. Visualized bilateral ureteral jets
--- NOTE | 2024-12-28 19:49 | DVHPN2 ---
Progress Note - Dictate Date Seen: Dec 28, 2024 Has the PT tested + for MRSA If YES, has PT been informed?: No Medical Necessity Reason Pt with a Central, PICC or Fol: No Medical Necessity Reason Patient continues to require hospital care for flank pain and nausea Subjective Left flank pain vital signs Vital Sign Date Time Temp Pulse Resp B/P (MAP) Pulse Ox O2 Delivery O2 Flow Rate FiO2 12/28/24 18:27 111 17 138/99 12/28/24 16:36 97.9 92 97.9 12/28/24 14:55 Facial BiPAP Mask 45 12/28/24 08:25 3 Total Intake and Output 12/27/24 12/27/24 12/28/24 15:00 23:00 07:00 Intake Total 50 ml 415 ml 300 ml Balance 50 ml 415 ml 300 ml medications Current Medications Medications Dose Ordered Sig/Heidi Route Start Time Stop Time Status Last Admin Dose Admin Ondansetron HCl 4 mg Q4HP PRN IV 12/22/24 17:30 12/27/24 17:58 4 MG Docusate Sodium 100 mg BIDPRN PRN PO 12/22/24 17:30 12/27/24 17:58 100 MG Acetaminophen 650 mg Q6HP PRN PO 12/22/24 17:30 Hold Oxycodone HCl 10 mg Q12HP PO 12/25/24 14:00 12/28/24 10:30 10 MG Hydromorphone HCl 1 mg Q2HPRN PRN IV 12/26/24 16:00 12/28/24 18:27 1 MG Ceftriaxone Sodium 50 ml @ 100 mls/hr DAILY@09 IV 12/27/24 09:00 12/28/24 09:16 100 MLS/HR Baclofen 10 mg BID PO 12/26/24 22:00 12/28/24 09:15 10 MG Trazodone HCl 50 mg HS PO 12/26/24 22:00 12/27/24 21:33 50 MG Sodium Chloride 1,000 ml @ 75 mls/hr [id number] IV 12/27/24 16:00 12/28/24 18:49 75 MLS/HR objective bladder US: bilateral ureteral jetting noted. PATIENT: ROBERT VIEYRABRANDENCT: [id number] UNIT: [id number] : 1980 LOC: [facility] / BED: [address] [place] [address] AGE / SEX: 44 / F ADM STATUS: ADM IN SERVICE 1346 ORDERING PHYSICIAN: LOUIS SOMMERS PROCEDURE(s): CHSTU - CHEST ULTRASOUND REASON: loculated left plural effusion ORDER NUMBER(s): [id number], ACCESSION NUMBER(s): [id number] Bilateral Chest Sonogram Date: 12/28/2024 02:08 PM Clinical history: loculated left pleural effusion Images submitted: 5 Findings /impression: Limited sonographic evaluation of the bilateral chest was performed . Left pleural effusion is present. No right pleural effusion ATED BY: BRINA MARIE MD DICTATED DATE/TIME: 12/28/24 145 SIGNED BY: BRINA MARIE MD SIGNED DATE/TIME: 12/28/24 145 CC: laboratory and microbiology Laboratory Tests 12/28/24 06:19 12/27/24 09:27 Test 12/28/24 06:19 Range/Units Serum Glucose 93 74-106 mg/dL PATIENT: BRIONNA VIEYRACT: [id number] UNIT: [id number] : 1980 LOC: [facility] ROOM / BED: [address] [place] [address] AGE / SEX: 44 / F ADM STATUS: ADM IN SERVICE 1024 ORDERING PHYSICIAN: LILA PIERRE MD PROCEDURE(s): ABPL - CT AB PEL WO CON-NO ORAL OR IV REASON: renal stones ORDER NUMBER(s): [id number], ACCESSION NUMBER(s): [id number] CLINICAL HISTORY: renal stones TECHNIQUE: CT of the abdomen and pelvis was performed without intravenous contrast. This exam was performed according to our departmental dose optimization program. Up-to-date CT equipment and radiation dose reduction techniques are utilized as appropriate. CTDI: 24.69 DLP: 1403.95 WID: COMPARISON: None FINDINGS: Lower Thorax: Normal-sized heart without pericardial effusion. Mild mitral annular calcifications. There is a small to moderate partially loculated left pleural effusion with consolidation of the left lung base with air bronchograms. Linear right basilar scarring or atelectasis. Liver and Biliary system: Mild hepatomegaly measuring 20 cm craniocaudal. No definite hepatic lesion. Gallbladder is normal caliber. There is no biliary ductal dilatation. Spleen: Unremarkable. Adrenal Glands and Kidneys: Normal adrenal glands. There are bilateral renal calculi including a staghorn calculus in the right renal pelvis measuring at least 2.8 cm on series 5, image 88. Largest nonobstructing left lower pole renal calculus measures 1.5 cm on series 5, image 87. There is mild bilateral hydronephrosis, bilateral urothelial thickening and periureteral soft tissue stranding. No obstructing calculus is seen along the course of the ureters. There is bilateral renal cortical scarring. Pancreas and Retroperitoneum: Grossly normal pancreas. There is mild retroperitoneal lymphadenopathy. Aorta and Major Vessels: Aortoiliac vessels are normal in caliber Bowel, Mesentery and Peritoneal space: Normal caliber small and large bowel. There is no free air or fluid collection. Pelvis: The uterus is present. Urinary bladder is mildly distended. There is no pelvic lymphadenopathy. Abdominal wall and Osseous Structures: Mild lower thoracic and lumbar spondylosis. Prominent disc osteophyte complex at L5-S1 results in moderate xocd-bxwdmcn-vnsd-right bilateral neural foraminal stenosis. No destructive osseous lesion. Tiny fat containing umbilical hernia. IMPRESSION: 1. Prominent bilateral renal calculi including a staghorn calculus in the right renal pelvis. 2. Mild bilateral hydronephrosis, urothelial thickening, and periureteral soft tissue stranding. Superimposed infection could be present to account for this finding. Correlate with urinalysis. 3. No obstructing calculus is seen along the course of the ureters. 4. Small to moderate partially loculated left pleural effusion and consolidation of the left lung base with air bronchograms which could reflect atelectasis and/or pneumonia. 5. Mild hepatomegaly. 6. Prominent disc osteophyte complex at L5-S1 results in moderate rewx-blnyfkg-hxce-right bilateral neural foraminal stenosis. ATED BY: BRINA MARIE MD DICTATED DATE/TIME: 12/28/24 1224 SIGNED BY: BRINA MARIE MD SIGNED DATE/TIME: 12/28/24 1224 CC: Problem List Right staghorn calculus Left staghorn calculus status post PCNL 12/23/24 (incomplete)-> 2 cm left lower pole stone Assessment/Plan Left lower pole stone residual Right staghorn calculus Plan for Outpatient left ESWL with stent placement to be arranged, but patient is unable to be discharged for pain. CT Scan reviewed. Bilateral hydronephrosis, mild, reported. Bladder US shows bilateral ureteral jetting. No obstructive uropathy. May proceed with left URSLL with renal evacuation/CVAC on Sunday based on equipment availability. Plan discussed with: Patient, Other LILA PIERRE MD Dec 28, 2024 19:49
--- NOTE | 2024-12-28 22:59 | DVHINCON2 ---
Date of service: Dec 28, [address] Aceves Reason for Consultation Acute hypoxic respiratory failure and pleural effusion History of Present Illness A 44-year-old woman with past medical history of depression, who was transferred to ED on 12/22/24 from [facility] for higher level of care due to bilateral, obstructing, staghorn renal calculi. Patient states she has been having flank pain for a few months. She has not been able to seek medical help due to being homeless. The pain became too severe causing her to go to [facility]. Denied fever, chills or any other GI/ complaints. Patient was admitted for further care. Pulmonary consultation is requested for evaluation and management of acute hypoxic respiratory failure and pleural effusion. Review of Systems: 14-point review of systems negative unless otherwise noted above. Past Medical History: Depression Past Surgical History: Appendectomy, Hysterectomy Medications: Reviewed. Allergies: Acetaminophen Ibuprofen. Family History: No family history of premature CAD. No family history of lung disorders. Social History: Nonsmoker. No alcohol or illicit drug use. Patient is homeless. Family History: Patient reports no known family medical history. Allergies: Coded Allergies: Acetaminophen (Verified Allergy, Mild, RASH, 03/10/22) Home Meds Active Scripts Hydrocodone-Acetaminophen (Hydrocodone Bitartrate/AC 10-325 mg) 1 Tab Tab, 1 TAB PO Q6HP PRN for 7 Days, #28 TAB 0 Refills Prov:MACIEL BLAIR MD 01/01/25 Doxycycline (Monohydrate) (Doxycycline) 100 Mg Cap, 100 MG PO BID for 10 Days, #20 CAP 0 Refills Prov:MACIEL BLAIR MD 01/01/25 Amoxicillin & Pot Clavulanate (AUGMENTIN TABLET) 875 Mg Tb, 875 MG PO BID for 10 Days, #20 TAB 0 Refills Prov:MACIEL BLAIR MD 01/01/25 Discontinued Scripts Cephalexin (KEFLEX CAPSULE) 250 Mg Cp, 250 MG PO QID for 7 Days, #28 TAB Prov:TRESSA PARRA MD 03/10/22 Vital Signs Vital Signs Date Time Temp Pulse Resp B/P (MAP) Pulse Ox O2 Delivery O2 Flow Rate FiO2 12/28/24 21:00 98.8 102 17 125/89 (101) 95 98.8 12/28/24 14:55 Facial BiPAP Mask 45 12/28/24 08:25 3 Physical Exam Gen.: Patient lying in bed in no apparent distress. On supplemental oxygen. Head: Normocephalic, atraumatic. Eyes: EOMI/PERRLA. Ears: Normal hearing. Normal anatomy. Neck/trachea: Trachea midline, supple. Nose: Normal external anatomy. Mouth: Moist mucous membranes. Chest: Decreased air entry bilaterally. No wheezing or rhonchi. Cardiovascular: Positive S1, positive S2. Regular rate and rhythm. Abdomen: Positive bowel sounds in all 4 quadrants. Soft, non-tender, non- distended. : Deferred. Rectal: Deferred. Skin: Warm, dry. Intact. Extremities: 2+ radial pulses bilaterally. No lower extremity edema. Neuro: Awake, alert, oriented x3. No gross motor or sensory deficits. Cranial nerves II through XII intact. Gait not assessed. Labs/Diagnostic Data Labs Test 12/28/24 06:19 12/27/24 14:05 12/27/24 11:20 12/27/24 09:27 Range/Units Sodium Level 138 136-145 mmol/L Potassium Level 3.8 3.5-5.1 mmol/L Chloride Level 101 98-107 mmol/L Carbon Dioxide Level 29 20-31 mmol/L Anion Gap 8 5-15 Blood Urea Nitrogen 14 9-23 mg/dL Creatinine 1.22 #H 0.550-1.02 mg/dL Glomerular Filtration Rate Calc 56 >90 mL/min BUN/Creatinine Ratio 11.5 10.0-20.0 Serum Glucose 93 74-106 mg/dL Calcium Level 9.0 8.7-10.4 mg/dL Blood Gas Specimen Type Arterial Blood Gas Sample Site Right radial Blood Gas Patient Temperature 37.0 Arterial Blood Date Drawn [id number] Arterial Blood pH 7.434 7.350-7.450 Arterial Blood Partial Pressure CO2 45.4 H 32.0-45.0 mmHg Arterial Blood Partial Pressure O2 81.0 L 83.0-108.0 mmHg Arterial Blood HCO3 29.7 H 21.0-28.0 mmol/L Arterial Blood Oxygen Saturation 95.5 94.0-98.0 % Arterial Blood Base Excess 4.8 H -2.0-3.0 mmol/L Arterial Blood Oxyhemoglobin 94.1 94.0-98.0 % Arterial Blood Carboxyhemoglobin 1.4 0.5-1.5 % Arterial Blood Methemoglobin 0.1 0.0-1.5 % Ji Test Yes Blood Gas Total Hemoglobin 13.00 12.0-16.0 g/dL Blood Gas Set Respiration Rate 14.0 Blood Gas Modality Mask - bipap Blood Gas Spontaneous Rate 21 FiO2 % 45.0 Blood Gas EPAP 5 Blood Gas IPAP 12 Specimen Drawn By farhan oliva Lactic Acid Level 0.8 0.4-2.0 mmol/L White Blood Count 15.5 #H 4.4-10.8 10^3/uL Red Blood Count 3.83 L 4.0-5.20 10^6/uL Hemoglobin 10.4 L 12.2-16.2 g/dL Hematocrit 32.5 L 36.0-46.0 % Mean Corpuscular Volume 84.8 80.0-100.0 fL Mean Corpuscular Hemoglobin 27.2 L 28.0-32.0 pg Mean Corpuscular Hemoglobin Concent 32.1 32.0-36.0 g/dL Red Cell Distribution Width 16.1 H 11.8-14.3 % Platelet Count 376 140-450 10^3/uL Mean Platelet Volume 7.6 6.9-10.8 fL Neutrophils (%) (Auto) 76.2 37.0-80.0 % Lymphocytes (%) (Auto) 13.5 10.0-50.0 % Monocytes (%) (Auto) 9.5 0.0-12.0 % Eosinophils (%) (Auto) 0.6 0.0-7.0 % Basophils (%) (Auto) 0.2 0.0-2.0 % Neutrophils # (Auto) 11.8 H 1.6-8.6 10 ^3/uL Lymphocytes # (Auto) 2.1 0.4-5.4 10 ^3/uL Monocytes # (Auto) 1.5 H 0-1.3 10 ^3/uL Eosinophils # (Auto) 0.1 0-0.8 10 ^3/uL Basophils # (Auto) 0 0-0.2 10 ^3/uL Nucleated Red Blood Cells 0.1 % B-Type Natriuretic Peptide 15.59 0-100 pg/mL Test 12/26/24 16:32 12/24/24 15:05 12/23/24 05:52 12/22/24 21:40 Range/Units Urine Color Colorless Yellow Urine Clarity Turbid H Clear Urine pH 6.0 5.0-9.0 Urine Specific [place] 1.013 1.001-1.035 Urine Protein 1+ H Negative Urine Ketones Negative Negative Urine Blood 3+ H Negative /uL Urine Nitrite Negative Negative Urine Bilirubin Negative Negative Urine Urobilinogen Normal Negative mg/dL Urine Leukocyte Esterase 3+ Negative /uL Urine RBC 160 0 - 4 /hpf Urine Microscopic WBC 146 H 0-5 /HPF Urine Squamous Epithelial Cells Few <5 /hpf Urine Bacteria Few H None Seen /hpf Urine Mucus Few None Seen Urine Glucose Normal Normal mg/dL Total Bilirubin 0.2 0.2-1.0 mg/dL Aspartate Amino Transferase (AST) 38 13-40 U/L Alanine Aminotransferase (ALT) 59 H 7-40 U/L Alkaline Phosphatase 98 46-116 U/L Total Protein 7.3 5.7-8.2 g/dL Albumin 3.4 3.2-4.8 g/dL Urine Test Negative Negative Test 12/22/24 18:24 Range/Units Prothrombin Time 10.9 9.3-11.8 sec Prothrombin Time INR 1.03 0.9-1.15 Activated Partial Thromboplast Time 25.6 24.5-34.5 SEC Assessment Impression: Acute hypoxic respiratory failure Dependence on supplemental oxygen Pleural effusion, loculated. Atelectasis Nephrostomy Morbid obesity, BMI 40 Plan: Supplemental oxygen Titrate to keep O2 sats above 92% On 3 LPM NC. Taper O2 as tolerated. BiPAP PRN. CT abdomen-pelvis today reviewed, demonstrates prominent bilateral renal calculi including a staghorn calculus in the right renal pelvis. Mild bilateral hydronephrosis, urothelial thickening, and periureteral soft tissue stranding. Small to moderate partially loculated left pleural effusion and consolidation of the left lung base with air bronchograms which could reflect atelectasis and/or pneumonia. Obtain limited chest ultrasound to assess if pleural effusion amenable to thoracentesis. Continue antibiotics Incentive spirometry Pain control Avoid oversedation Follow up Nephrology recs Monitor renal function. Monitor electrolytes. Supplement as necessary. Monitor ins and outs. Recommend diet and lifestyle modifications for weight reduction Obesity complicates all care DVT prophylaxis. Prognosis: Poor given patient's multiple co-morbidities. Rest of plan per hospitalist and other consultants. Thank you, Dr. Aceves, for allowing me to participate in this patient's care. Further recommendations will depend on the patient's clinical course. Please do not hesitate to contact me if you have any questions or concerns. This medical document was created using an electronic medical record system with [employer] dictation system. Although these documentations are being carefully reviewed, there may still be some phonetic and typographical changes. The errors are purely typographical, due to imperfection on the software program, and do not reflect any compromise in the patient's medical care. Plan discussed with: Other ([place] Phipps/Dr. Aceves) Visit Coding Pulmonary Billing Provider: PATRICIA CONTRERAS MD Date of Service if different f: Dec 28, 2024 Common Visit Codes: [id number] INP/OBS CARE (HIGH) PATRICIA CONTRERAS MD Dec 28, 2024 22:59
[2024-12-29] VITALS (10 sets, daily range): BP systolic 113–139; BP diastolic 78–92; PULSE 73–95; RESP 18–22; TEMP 97–98.9; O2SAT 93–100
[2024-12-29 06:47] LABS: Hemoglobin 9.2 g/dL (12.2-16.2); Nucleated Red Blood Cells % 0.0 %
[2024-12-29 06:50] LABS: Hematocrit 27.7 % (36.0-46.0); Mean Corpuscular Hemoglobin 27.5 pg (28.0-32.0); Mean Corpuscular Volume 83.0 fL (80.0-100.0)
[2024-12-29 07:00] LABS: Chloride 100 mmol/L (98-107); Potassium 4.3 mmol/L (3.5-5.1); Sodium 136 mmol/L (136-145)
[2024-12-29 07:01] LABS: Anion Gap 8 (5-15); Carbon Dioxide 28 mmol/L (20-31)
[2024-12-29 07:02] LABS: Calcium 9.8 mg/dL (8.7-10.4)
[2024-12-29 07:07] LABS: BUN/Creatinine Ratio 14.1 (10.0-20.0); Blood Urea Nitrogen 13 mg/dL (9-23)
[2024-12-29 07:11] LABS: Glucose 139 mg/dL (74-106)
--- NOTE | 2024-12-29 10:38 | DVHPN2 ---
Reviewed: H&P Changes from previous H/P or p: No Changes General: Per HPI Eyes: No Pain, No Vision change, No Conjunctivae inflammation, No Eyelid inflammation, No Other, No Redness ENT: No Ear pain, No Ear discharge, No Nose pain, No Nose discharge, No Nose congestion, No Mouth pain, No Mouth swelling, No Throat pain, No Throat swelling, No Other Cardiovascular: No Chest Pain, No Palpitations, No Orthopnea, No Paroxysmal Noc. Dyspnea, No Edema, No Lt Headedness, No Other Respiratory: No Cough, No Dry, No Shortness of breath, No SOB with excertion, No Wheezing, No Hemoptysis, No Pleuritic Pain, No Sputum, No Other Gastrointestinal: Nausea; No Vomiting, No Abdominal Pain, No Diarrhea, No Constipation, No Melena, No Hematochezia, No Other Genitourinary: No Dysuria, No Frequency, No Incontinence, No Hematuria, No Retention, No Other Musculoskeletal: No other, No neck pain, No shoulder pain, No arm pain; back pain (risght and left flank pain); No hand pain, No leg pain, No foot pain Skin: No Rash, No Lesions, No Jaundice, No Bruising, No Other Objective Vitals Vital Signs Date Time Temp Pulse Resp B/P (MAP) Pulse Ox O2 Delivery O2 Flow Rate FiO2 12/29/24 09:49 98.1 86 22 124/83 (97) 96 98.1 12/29/24 05:56 Room Air 0.0 12/29/24 05:56 21 Intake/Output Intake and Output 12/29/24 07:00 Intake Total 2310 ml Balance 2310 ml Intake Oral 2260 ml IV Total 50 ml # Voids 4 General Appearance: Alert, Oriented X3 HEENT: Atraumatic Lungs: Clear to auscultation Cardiovascular: Regular rate, Normal S1, Normal S2 Abdomen: Normal bowel sounds Medications Current Medications Medications Dose Ordered Sig/Heidi Route Start Time Stop Time Status Last Admin Dose Admin Ondansetron HCl 4 mg Q4HP PRN IV 12/22/24 17:30 12/29/24 05:15 4 MG Docusate Sodium 100 mg BIDPRN PRN PO 12/22/24 17:30 12/27/24 17:58 100 MG Acetaminophen 650 mg Q6HP PRN PO 12/22/24 17:30 Hold Oxycodone HCl 10 mg Q12HP PO 12/25/24 14:00 12/28/24 21:38 10 MG Hydromorphone HCl 1 mg Q2HPRN PRN IV 12/26/24 16:00 12/29/24 08:41 1 MG Ceftriaxone Sodium 50 ml @ 100 mls/hr DAILY@09 IV 12/27/24 09:00 12/29/24 08:40 100 MLS/HR Baclofen 10 mg BID PO 12/26/24 22:00 12/29/24 08:40 10 MG Trazodone HCl 50 mg HS PO 12/26/24 22:00 12/28/24 21:38 50 MG Sodium Chloride 1,000 ml @ 75 mls/hr [id number] IV 12/27/24 16:00 12/28/24 18:49 75 MLS/HR Laboratory Results Laboratory Tests 12/29/24 06:05 Chemistry Test 12/29/24 06:05 Calcium Level 9.8 mg/dL (8.7-10.4) Urinalysis Test 12/22/24 21:40 12/26/24 16:32 Urine Test Negative (Negative) Urine Color Colorless (Yellow) Urine Clarity Turbid (Clear) H Urine pH 6.0 (5.0-9.0) Urine Specific [place] 1.013 (1.001-1.035) Urine Protein 1+ (Negative) H Urine Ketones Negative (Negative) Urine Blood 3+ /uL (Negative) H Urine Nitrite Negative (Negative) Urine Bilirubin Negative (Negative) Urine Urobilinogen Normal mg/dL (Negative) Urine Leukocyte Esterase 3+ /uL (Negative) Urine RBC 160 /hpf (0 - 4) Urine Microscopic WBC 146 /HPF (0-5) H Urine Squamous Epithelial Cells Few /hpf (<5) Urine Bacteria Few /hpf (None Seen) H Urine Mucus Few (None Seen) Urine Glucose Normal mg/dL (Normal) Labs and/or images reviewed: Labs reviewed by me, Image(s) reviewed by me Assessment/Plan Assessment/Plan 44-year-old female with past medical history of depression, who was transferred from [facility] for higher level of care due to bilateral, obstructing, staghorn, renal calculi. Patient states she has been having flank pain for a few months. She has not been able to seek medical help due to being homeless. The pain became too severe causing her to go to [facility]. 12/26: Patient was taken for ESWL in had left PCNL nephrostomy tube done on 12/23/2024. Patient has significant pain yesterday, pain continues today. Is also some serosanguineous drainage and leakage around the nephrostomy site which is saturating the packing and dressing. Urology to follow up today. We will maximize pain control. 12/27: Urology has remove the nephrostomy and urinary Calderon catheter. [facility]. Continues to have significant pain and nephrostomy insertion site continuing maximal schedule pain therapy with prn Dilaudid. Patient appears to have left pleural effusion we will repeat x-ray today. Patient requiring 4 L oxygen continue oxygen supplementation with SpO2 goal > 90. We will try some BiPAP prn, pressures /. She is unable to take deep breaths unclear if left pleural effusions related to atelectasis unable to do incentive spirometer as she has significant pain, hoping BiPAP can help. Continue other home medications. She has some mild pitting edema and significant rales, we will try 1 time Lasix 40 IV. Patient's anion gap we will check BMP be [employer] and lactic 12/28: Patient CT chest abdomen pelvis, concerning for ongoing bilateral hydronephrosis and, also now has a left loculated pleural effusion. We will get pulmonology to see this placing consult for home. We will discuss with the Urology again regarding bilateral hydronephrosis tomorrow. Continue focusing control of pain which is improving. Continue BiPAP which helps patient is significantly better with both pain and breathing.. Creatinine is creeping up. We will stops Ibuprofen continue slow IV fluids. 12/29: Patient continues to have pain in left PCNL site. Nephrology planning for cystoscopy in part possible bilateral ureteral stents today. Today patient has no breath sounds in left lower lobe region. Pulmonology has been consulted and is aware. Appreciate follow up from Urology and pulmonology. We will continue to focus on pain control with prn analgesia and some scheduled analgesia as well. Holding off NSAIDs from yesterday because creatinine was rising. - patient is not on scheduled for OR today, now rescheduled for tomorrow, we will make continue diet and then make NPO midnight again. For tomorrow. Continue pain control. Creatinine improving. Still continuing to hold ibuprofen for now. Pulmonology wants to have put in chest tube, we will put IR consult. Diagnosis: Hydronephrosis with renal and ureteral calculus obstruction, status post lithotripsy 12/23/24 Bilateral hydronephrosis, status post nephrostomy tube insertion 12/23/2024 Bilateral obstructing renal calculi, Depression, Plan: Continue IV abx s/p nephrostomy and nephrolithotomy with severe pain IV dilaudid q 3 hours for severe pain Dilaudid 1 mg Q 2, scheduled oxycodone, Scheduled Tylenol Scheduled ibuprofen 400 b.i.d. Schedule Protonix IV 40 daily Baclofen 10 mg b.i.d. Trazodone 50 nightly Continue taking other home medications Continue diet Med surge Full code Plan discussed with: Patient My Orders Orders - MACIEL BLAIR MD Procedure Category Date Status Time * Wound Consult CONS 12/28/24 Transmitted *Consult CONS 12/28/24 Transmitted 13:15 Date of Service: Dec 29, 2024 Billing Provider: MACIEL BLAIR MD Common Visit Codes: [id number] INP/OBS CARE(HIGH) MACIEL BLAIR MD Dec 29, 2024 10:38
--- NOTE | 2024-12-29 23:54 | DVHPN2 ---
Subjective DOS: 12/29/2024 Patient seen and examined at bedside. Currently on BiPAP Overnight events reviewed. Reviewed: H&P Changes from previous H/P or p: No Changes General: Per HPI Eyes: No Pain, No Vision change, No Conjunctivae inflammation, No Eyelid inflammation, No Other, No Redness ENT: No Ear pain, No Ear discharge, No Nose pain, No Nose discharge, No Nose congestion, No Mouth pain, No Mouth swelling, No Throat pain, No Throat swelling, No Other Cardiovascular: No Chest Pain, No Palpitations, No Orthopnea, No Paroxysmal Noc. Dyspnea, No Edema, No Lt Headedness, No Other Respiratory: No Cough, No Dry, No Shortness of breath, No SOB with excertion, No Wheezing, No Hemoptysis, No Pleuritic Pain, No Sputum, No Other Gastrointestinal: Nausea; No Vomiting, No Abdominal Pain, No Diarrhea, No Constipation, No Melena, No Hematochezia, No Other Genitourinary: No Dysuria, No Frequency, No Incontinence, No Hematuria, No Retention, No Other Musculoskeletal: No other, No neck pain, No shoulder pain, No arm pain; back pain (risght and left flank pain); No hand pain, No leg pain, No foot pain Skin: No Rash, No Lesions, No Jaundice, No Bruising, No Other Objective Vitals Vital Signs Date Time Temp Pulse Resp B/P (MAP) Pulse Ox O2 Delivery O2 Flow Rate FiO2 12/29/24 21:00 98.0 73 20 113/78 (90) 95 98.0 12/29/24 19:25 Facial BiPAP Mask 40 12/29/24 08:00 3 Intake/Output Intake and Output 12/29/24 07:00 Intake Total 2310 ml Balance 2310 ml Intake Oral 2260 ml IV Total 50 ml # Voids 4 Exam Gen.: Patient lying in bed in no apparent distress. On BiPAP Head: Normocephalic, atraumatic. Eyes: EOMI/PERRLA. Ears: Normal hearing. Normal anatomy. Neck/trachea: Trachea midline, supple. Nose: Normal external anatomy. Mouth: Moist mucous membranes. Chest: Decreased air entry bilaterally. No wheezing or rhonchi. Cardiovascular: Positive S1, positive S2. Regular rate and rhythm. Abdomen: Positive bowel sounds in all 4 quadrants. Soft, non-tender, non- distended. : Deferred. Rectal: Deferred. Skin: Warm, dry. Intact. Extremities: 2+ radial pulses bilaterally. No lower extremity edema. Neuro: Awake, alert, oriented x3. No gross motor or sensory deficits. Cranial nerves II through XII intact. Gait not assessed. General Appearance: Alert, Oriented X3 HEENT: Atraumatic Lungs: Clear to auscultation Cardiovascular: Regular rate, Normal S1, Normal S2 Abdomen: Normal bowel sounds Medications Current Medications Medications Dose Ordered Sig/Heidi Route Start Time Stop Time Status Last Admin Dose Admin Ondansetron HCl 4 mg Q4HP PRN IV 12/22/24 17:30 12/29/24 05:15 4 MG Docusate Sodium 100 mg BIDPRN PRN PO 12/22/24 17:30 12/27/24 17:58 100 MG Acetaminophen 650 mg Q6HP PRN PO 12/22/24 17:30 Hold Oxycodone HCl 10 mg Q12HP PO 12/25/24 14:00 12/29/24 23:00 10 MG Hydromorphone HCl 1 mg Q2HPRN PRN IV 12/26/24 16:00 12/29/24 20:53 1 MG Ceftriaxone Sodium 50 ml @ 100 mls/hr DAILY@09 IV 12/27/24 09:00 12/29/24 08:40 100 MLS/HR Baclofen 10 mg BID PO 12/26/24 22:00 12/29/24 22:59 10 MG Trazodone HCl 50 mg HS PO 12/26/24 22:00 12/29/24 22:59 50 MG Sodium Chloride 1,000 ml @ 75 mls/hr [id number] IV 12/27/24 16:00 12/28/24 18:49 75 MLS/HR Laboratory Results Laboratory Tests 12/29/24 06:05 Chemistry Test 12/29/24 06:05 Calcium Level 9.8 mg/dL (8.7-10.4) Urinalysis Test 12/22/24 21:40 12/26/24 16:32 Urine Test Negative (Negative) Urine Color Colorless (Yellow) Urine Clarity Turbid (Clear) H Urine pH 6.0 (5.0-9.0) Urine Specific [place] 1.013 (1.001-1.035) Urine Protein 1+ (Negative) H Urine Ketones Negative (Negative) Urine Blood 3+ /uL (Negative) H Urine Nitrite Negative (Negative) Urine Bilirubin Negative (Negative) Urine Urobilinogen Normal mg/dL (Negative) Urine Leukocyte Esterase 3+ /uL (Negative) Urine RBC 160 /hpf (0 - 4) Urine Microscopic WBC 146 /HPF (0-5) H Urine Squamous Epithelial Cells Few /hpf (<5) Urine Bacteria Few /hpf (None Seen) H Urine Mucus Few (None Seen) Urine Glucose Normal mg/dL (Normal) Assessment/Plan Assessment/Plan Impression: Acute hypoxic respiratory failure Dependence on supplemental oxygen Pleural effusion, loculated. Atelectasis Nephrostomy Morbid obesity, BMI 40 Events: Currently on BiPAP BiPAP with IPAP 12, EPAP 5, FIO2 45% Taper FiO2 as tolerated Obtain IR consult for chest tube placement. Limited chest ultrasound revealed Left pleural effusion is present. No right pleural effusion Continue bronchodilators Continue antibiotics Incentive spirometry Pain control Avoid oversedation Labs and imaging reviewed. Rest of plan as noted below. Plan: Supplemental oxygen Titrate to keep O2 sats above 92% BiPAP PRN. CT abdomen-pelvis reviewed, demonstrates prominent bilateral renal calculi including a staghorn calculus in the right renal pelvis. Mild bilateral hydronephrosis, urothelial thickening, and periureteral soft tissue stranding. Small to moderate partially loculated left pleural effusion and consolidation of the left lung base with air bronchograms which could reflect atelectasis and/or pneumonia. Continue antibiotics Incentive spirometry Pain control Avoid oversedation Follow up Nephrology recs Monitor renal function. Monitor electrolytes. Supplement as necessary. Monitor ins and outs. Recommend diet and lifestyle modifications for weight reduction Obesity complicates all care DVT prophylaxis. Prognosis: Poor given patient's multiple co-morbidities. Rest of plan per hospitalist and other consultants. Thank you, Dr. Aceves, for allowing me to participate in this patient's care. Further recommendations will depend on the patient's clinical course. Please do not hesitate to contact me if you have any questions or concerns. This medical document was created using an electronic medical record system with [employer] system. Although these documentations are being carefully reviewed, there may still be some phonetic and typographical changes. The errors are purely typographical, due to imperfection on the software program, and do not reflect any compromise in the patient's medical care. Plan discussed with: Patient, Other ([place] Chai) Visit Coding Pulmonary Billing Provider: PATRICIA CONTRERAS MD Date of Service if different f: Dec 29, 2024 Common Visit Codes: [id number] INP/OBS CARE(HIGH) PATRICIA CONTRERAS MD Dec 29, 2024 23:54
[2024-12-30] VITALS (14 sets, daily range): BP systolic 110–150; BP diastolic 65–93; PULSE 66–90; RESP 20–22; TEMP 96.6–99.1; O2SAT 95–100
[2024-12-30 06:54] LABS: Anion Gap 9 (5-15); Chloride 99 mmol/L (98-107); Potassium 4.2 mmol/L (3.5-5.1); Sodium 139 mmol/L (136-145)
[2024-12-30 06:56] LABS: Calcium 9.8 mg/dL (8.7-10.4)
[2024-12-30 07:00] LABS: BUN/Creatinine Ratio 12.6 (10.0-20.0); Blood Urea Nitrogen 13 mg/dL (9-23); Glucose 88 mg/dL (74-106)
[2024-12-30 07:01] LABS: Carbon Dioxide 31 mmol/L (20-31)
[2024-12-30] MEDS: LIDOCAINE 2%HCL (LOCAL ANESTH.) INJ 10ml MDV ONE (09:20)
[2024-12-30] MEDS: MIDAZOLAM HCL 2MG/2ML 2ml VIAL (1mg/ml) IV ONE (09:30)
[2024-12-30] MEDS: fentaNYL CITRATE 100 MCG/2 ML VL IV ONE (09:30)
--- NOTE | 2024-12-30 10:29 | DVHPN2 ---
Reviewed: H&P Changes from previous H/P or p: No Changes General: Per HPI Eyes: No Pain, No Vision change, No Conjunctivae inflammation, No Eyelid inflammation, No Other, No Redness ENT: No Ear pain, No Ear discharge, No Nose pain, No Nose discharge, No Nose congestion, No Mouth pain, No Mouth swelling, No Throat pain, No Throat swelling, No Other Cardiovascular: No Chest Pain, No Palpitations, No Orthopnea, No Paroxysmal Noc. Dyspnea, No Edema, No Lt Headedness, No Other Respiratory: No Cough, No Dry, No Shortness of breath, No SOB with excertion, No Wheezing, No Hemoptysis, No Pleuritic Pain, No Sputum, No Other Gastrointestinal: Nausea; No Vomiting, No Abdominal Pain, No Diarrhea, No Constipation, No Melena, No Hematochezia, No Other Genitourinary: No Dysuria, No Frequency, No Incontinence, No Hematuria, No Retention, No Other Musculoskeletal: No other, No neck pain, No shoulder pain, No arm pain; back pain (risght and left flank pain); No hand pain, No leg pain, No foot pain Skin: No Rash, No Lesions, No Jaundice, No Bruising, No Other Objective Vitals Vital Signs Date Time Temp Pulse Resp B/P (MAP) Pulse Ox O2 Delivery O2 Flow Rate FiO2 12/30/24 09:43 80 18 144/98 12/30/24 09:00 96.6 98 96.6 12/30/24 07:55 Nasal Cannula* 2 28 Intake/Output Intake and Output 12/30/24 07:00 Intake Total 390 ml Output Total 400 ml Balance -10 ml Intake Oral 340 ml IV Total 50 ml Output Urine Total 400 ml # Voids 2 General Appearance: Alert, Oriented X3 HEENT: Atraumatic Lungs: Clear to auscultation Cardiovascular: Regular rate, Normal S1, Normal S2 Abdomen: Normal bowel sounds Medications Current Medications Medications Dose Ordered Sig/Heidi Route Start Time Stop Time Status Last Admin Dose Admin Ondansetron HCl 4 mg Q4HP PRN IV 12/22/24 17:30 12/29/24 05:15 4 MG Docusate Sodium 100 mg BIDPRN PRN PO 12/22/24 17:30 12/27/24 17:58 100 MG Acetaminophen 650 mg Q6HP PRN PO 12/22/24 17:30 Hold Oxycodone HCl 10 mg Q12HP PO 12/25/24 14:00 12/29/24 23:00 10 MG Hydromorphone HCl 1 mg Q2HPRN PRN IV 12/26/24 16:00 12/30/24 09:13 1 MG Ceftriaxone Sodium 50 ml @ 100 mls/hr DAILY@09 IV 12/27/24 09:00 12/30/24 09:12 100 MLS/HR Baclofen 10 mg BID PO 12/26/24 22:00 12/30/24 09:12 10 MG Trazodone HCl 50 mg HS PO 12/26/24 22:00 12/29/24 22:59 50 MG Sodium Chloride 1,000 ml @ 75 mls/hr [id number] IV 12/27/24 16:00 12/28/24 18:49 75 MLS/HR Laboratory Results Laboratory Tests 12/29/24 06:05 12/30/24 06:15 Chemistry Test 12/30/24 06:15 Calcium Level 9.8 mg/dL (8.7-10.4) Urinalysis Test 12/22/24 21:40 12/26/24 16:32 Urine Test Negative (Negative) Urine Color Colorless (Yellow) Urine Clarity Turbid (Clear) H Urine pH 6.0 (5.0-9.0) Urine Specific [place] 1.013 (1.001-1.035) Urine Protein 1+ (Negative) H Urine Ketones Negative (Negative) Urine Blood 3+ /uL (Negative) H Urine Nitrite Negative (Negative) Urine Bilirubin Negative (Negative) Urine Urobilinogen Normal mg/dL (Negative) Urine Leukocyte Esterase 3+ /uL (Negative) Urine RBC 160 /hpf (0 - 4) Urine Microscopic WBC 146 /HPF (0-5) H Urine Squamous Epithelial Cells Few /hpf (<5) Urine Bacteria Few /hpf (None Seen) H Urine Mucus Few (None Seen) Urine Glucose Normal mg/dL (Normal) Labs and/or images reviewed: Labs reviewed by me, Image(s) reviewed by me Assessment/Plan Assessment/Plan 44-year-old female with past medical history of depression, who was transferred from [facility] for higher level of care due to bilateral, obstructing, staghorn, renal calculi. Patient states she has been having flank pain for a few months. She has not been able to seek medical help due to being homeless. The pain became too severe causing her to go to [facility]. 12/26: Patient was taken for ESWL in had left PCNL nephrostomy tube done on 12/23/2024. Patient has significant pain yesterday, pain continues today. Is also some serosanguineous drainage and leakage around the nephrostomy site which is saturating the packing and dressing. Urology to follow up today. We will maximize pain control. 12/27: Urology has remove the nephrostomy and urinary Calderon catheter. [facility]. Continues to have significant pain and nephrostomy insertion site continuing maximal schedule pain therapy with prn Dilaudid. Patient appears to have left pleural effusion we will repeat x-ray today. Patient requiring 4 L oxygen continue oxygen supplementation with SpO2 goal > 90. We will try some BiPAP prn, pressures 12/5. She is unable to take deep breaths unclear if left pleural effusions related to atelectasis unable to do incentive spirometer as she has significant pain, hoping BiPAP can help. Continue other home medications. She has some mild pitting edema and significant rales, we will try 1 time Lasix 40 IV. Patient's anion gap we will check BMP be [employer] and lactic 12/28: Patient CT chest abdomen pelvis, concerning for ongoing bilateral hydronephrosis and, also now has a left loculated pleural effusion. We will get pulmonology to see this placing consult for home. We will discuss with the Urology again regarding bilateral hydronephrosis tomorrow. Continue focusing control of pain which is improving. Continue BiPAP which helps patient is significantly better with both pain and breathing.. Creatinine is creeping up. We will stops Ibuprofen continue slow IV fluids. 12/29: Patient continues to have pain in left PCNL site. Nephrology planning for cystoscopy in part possible bilateral ureteral stents today. Today patient has no breath sounds in left lower lobe region. Pulmonology has been consulted and is aware. Appreciate follow up from Urology and pulmonology. We will continue to focus on pain control with prn analgesia and some scheduled analgesia as well. Holding off NSAIDs from yesterday because creatinine was rising. - patient is not on scheduled for OR today, now rescheduled for tomorrow, we will make continue diet and then make NPO midnight again. For tomorrow. Continue pain control. Creatinine improving. Still continuing to hold ibuprofen for now. Pulmonology wants to have put in chest tube, we will put IR consult. 12/30: Patient NPO since midnight, taken to OR today. Also needs to have left IR small bore chest tube seems to be inserted today. Pulmonology to follow up. Continue nasal cannula or equivalent oxygen to maintain sats SpO2 more than 90%. Continue other home medications and prior management plan. Patient reviewed by IR for left chest tube, upon review pleural effusion is minimal and opacity area appears more in line with possible infection consolidation. We will hold off chest tube at this point, and start broad- spectrum antibiotics cefepime and doxycycline. Pulmonology to continue following. Appreciate recommendations. Diagnosis: Hydronephrosis with renal and ureteral calculus obstruction, status post lithotripsy 12/23/24 Bilateral hydronephrosis, status post nephrostomy tube insertion 12/23/2024 Bilateral obstructing renal calculi, Depression, Plan: Continue IV abx s/p nephrostomy and nephrolithotomy with severe pain IV dilaudid q 3 hours for severe pain Dilaudid 1 mg Q 2, scheduled oxycodone, Scheduled Tylenol Scheduled ibuprofen 400 b.i.d. Schedule Protonix IV 40 daily Baclofen 10 mg b.i.d. Trazodone 50 nightly Continue taking other home medications Continue diet Med surge Full code Plan discussed with: Patient My Orders Orders - MACIEL BLAIR MD Procedure Category Date Status Time * Radiologist Consult CONS 12/29/24 Transmitted 16:18 Regular Diet DIET 12/29/[address] Guidance For CT 12/30/24 Logged Needle Placeme 09:[address] 12/30/24 Logged 09:18 Thoracentesis US 12/30/24 Logged 10:19 Date of Service: Dec 30, 2024 Billing Provider: MACIEL BLAIR MD Common Visit Codes: [id number] INP/OBS CARE(HIGH) MACIEL BLAIR MD Dec 30, 2024 10:29
--- NOTE | 2024-12-30 11:11 | DVH ---
CT CHEST WITHOUT CONTRAST INDICATION: CHEST TUBE PLACEMENT EXAM DATE: 12/30/2024 10:23 AM COMPARISON: US CHEST ULTRASOUND on DOS: 12/28/24, XY CHEST XRAY 1 VIEW on DOS: 12/27/24, XY CHEST XRAY 1 VIEW on DOS: 12/26/24 RADIATION DOSE: CTDIvol: 17 mGy, DLP: 603 mGy*cm PROCEDURE: Helical CT images were obtained of the chest without intravenous contrast. Sagittal and coronal reconstructions are not provided. ADDITIONAL IMAGES / REFORMATS: None All CT scans at this medical facility are performed using dose modulation techniques as appropriate to a performed exam including the following: Automated exposure control was utilized; adjustment of the MA and/or KV according to patient size; and use of iterative reconstruction technique. FINDINGS: Bones: Scattered degenerative changes are noted. Visualized Abdomen: Normal. Chest Wall: Normal. Soft tissues: Normal. Mediastinum: Normal. Heart: Coronary artery calcifications are noted. Vessels: Normal. Lymph Nodes: Normal. Pleura: Small loculated left pleural effusion, could be parapneumonic effusion. Airways: Normal. Lung: Left basilar consolidation could be pneumonia. Other: None IMPRESSION: Left basilar consolidation could be pneumonia. Small loculated left pleural effusion, could be parapneumonic effusion.
[2024-12-30] MEDS: DOXYCYCLINE 100MG/100ML 100 ML IV SCH (11:31)
[2024-12-30] MEDS: CEFEPIME 1GM/50ML 50 ML IV SCH (14:42)
--- NOTE | 2024-12-30 23:48 | DVHPN2 ---
Subjective DOS: 12/30/2024 Patient seen and examined at bedside. Currently on supplemental oxygen Overnight events reviewed. Reviewed: H&P Changes from previous H/P or p: No Changes General: Per HPI Eyes: No Pain, No Vision change, No Conjunctivae inflammation, No Eyelid inflammation, No Other, No Redness ENT: No Ear pain, No Ear discharge, No Nose pain, No Nose discharge, No Nose congestion, No Mouth pain, No Mouth swelling, No Throat pain, No Throat swelling, No Other Cardiovascular: No Chest Pain, No Palpitations, No Orthopnea, No Paroxysmal Noc. Dyspnea, No Edema, No Lt Headedness, No Other Respiratory: No Cough, No Dry, No Shortness of breath, No SOB with excertion, No Wheezing, No Hemoptysis, No Pleuritic Pain, No Sputum, No Other Gastrointestinal: Nausea; No Vomiting, No Abdominal Pain, No Diarrhea, No Constipation, No Melena, No Hematochezia, No Other Genitourinary: No Dysuria, No Frequency, No Incontinence, No Hematuria, No Retention, No Other Musculoskeletal: No other, No neck pain, No shoulder pain, No arm pain; back pain (risght and left flank pain); No hand pain, No leg pain, No foot pain Skin: No Rash, No Lesions, No Jaundice, No Bruising, No Other Objective Vitals Vital Signs Date Time Temp Pulse Resp B/P (MAP) Pulse Ox O2 Delivery O2 Flow Rate FiO2 12/30/24 21:00 99.1 80 20 150/83 (105) 98 99.1 12/30/24 20:10 Nasal Cannula 3.0 12/30/24 20:10 32 Intake/Output Intake and Output 12/30/24 07:00 Intake Total 390 ml Output Total 400 ml Balance -10 ml Intake Oral 340 ml IV Total 50 ml Output Urine Total 400 ml # Voids 2 Exam Gen.: Patient lying in bed in no apparent distress. On supplemental oxygen Head: Normocephalic, atraumatic. Eyes: EOMI/PERRLA. Ears: Normal hearing. Normal anatomy. Neck/trachea: Trachea midline, supple. Nose: Normal external anatomy. Mouth: Moist mucous membranes. Chest: Decreased air entry bilaterally. No wheezing or rhonchi. Cardiovascular: Positive S1, positive S2. Regular rate and rhythm. Abdomen: Positive bowel sounds in all 4 quadrants. Soft, non-tender, non- distended. : Deferred. Rectal: Deferred. Skin: Warm, dry. Intact. Extremities: 2+ radial pulses bilaterally. No lower extremity edema. Neuro: Awake, alert, oriented x3. No gross motor or sensory deficits. Cranial nerves II through XII intact. Gait not assessed. General Appearance: Alert, Oriented X3 HEENT: Atraumatic Lungs: Clear to auscultation Cardiovascular: Regular rate, Normal S1, Normal S2 Abdomen: Normal bowel sounds Medications Current Medications Medications Dose Ordered Sig/Heidi Route Start Time Stop Time Status Last Admin Dose Admin Ondansetron HCl 4 mg Q4HP PRN IV 12/22/24 17:30 12/29/24 05:15 4 MG Docusate Sodium 100 mg BIDPRN PRN PO 12/22/24 17:30 12/27/24 17:58 100 MG Acetaminophen 650 mg Q6HP PRN PO 12/22/24 17:30 Hold Oxycodone HCl 10 mg Q12HP PO 12/25/24 14:00 12/29/24 23:00 10 MG Hydromorphone HCl 1 mg Q2HPRN PRN IV 12/26/24 16:00 12/30/24 20:51 1 MG Ceftriaxone Sodium 50 ml @ 100 mls/hr DAILY@09 IV 12/27/24 09:00 Hold 12/30/24 09:12 100 MLS/HR Baclofen 10 mg BID PO 12/26/24 22:00 12/30/24 22:46 10 MG Trazodone HCl 50 mg HS PO 12/26/24 22:00 12/30/24 22:46 50 MG Doxycycline Hyclate 100 ml @ 50 mls/hr Q12H IV 12/30/24 10:45 12/30/24 22:47 50 MLS/HR Cefepime HCl 50 ml @ 12.5 mls/hr Q8HR IV 12/31/24 01:00 Laboratory Results Laboratory Tests 12/29/24 06:05 12/30/24 06:15 Chemistry Test 12/30/24 06:15 Calcium Level 9.8 mg/dL (8.7-10.4) Urinalysis Test 12/22/24 21:40 12/26/24 16:32 Urine Test Negative (Negative) Urine Color Colorless (Yellow) Urine Clarity Turbid (Clear) H Urine pH 6.0 (5.0-9.0) Urine Specific [place] 1.013 (1.001-1.035) Urine Protein 1+ (Negative) H Urine Ketones Negative (Negative) Urine Blood 3+ /uL (Negative) H Urine Nitrite Negative (Negative) Urine Bilirubin Negative (Negative) Urine Urobilinogen Normal mg/dL (Negative) Urine Leukocyte Esterase 3+ /uL (Negative) Urine RBC 160 /hpf (0 - 4) Urine Microscopic WBC 146 /HPF (0-5) H Urine Squamous Epithelial Cells Few /hpf (<5) Urine Bacteria Few /hpf (None Seen) H Urine Mucus Few (None Seen) Urine Glucose Normal mg/dL (Normal) Assessment/Plan Assessment/Plan Impression: Acute hypoxic respiratory failure Dependence on supplemental oxygen Pleural effusion, loculated. Atelectasis Nephrostomy Morbid obesity, BMI 40 Events: Currently on supplemental oxygen 2 LPM NC Taper O2 as tolerated Obtain IR consult for chest tube placement. Limited chest ultrasound revealed Left pleural effusion is present. No right pleural effusion Discussed with IR about small amount of pleural effusion. Per IR, no indication for thoracentesis at this time. Treat with abx course. Recommend repeat CT chest in 6 to 8 weeks to assess for interval changes. Start antibiotic course Incentive spirometry Continue bronchodilators Pain control Avoid oversedation Labs and imaging reviewed. Rest of plan as noted below. Plan: Supplemental oxygen Titrate to keep O2 sats above 92% BiPAP PRN. CT abdomen-pelvis reviewed, demonstrates prominent bilateral renal calculi including a staghorn calculus in the right renal pelvis. Mild bilateral hydronephrosis, urothelial thickening, and periureteral soft tissue stranding. Small to moderate partially loculated left pleural effusion and consolidation of the left lung base with air bronchograms which could reflect atelectasis and/or pneumonia. Continue antibiotics Incentive spirometry Pain control Avoid oversedation Follow up Nephrology recs Monitor renal function. Monitor electrolytes. Supplement as necessary. Monitor ins and outs. Recommend diet and lifestyle modifications for weight reduction Obesity complicates all care DVT prophylaxis. Prognosis: Poor given patient's multiple co-morbidities. Rest of plan per hospitalist and other consultants. Thank you, Dr. Aceves, for allowing me to participate in this patient's care. Further recommendations will depend on the patient's clinical course. Please do not hesitate to contact me if you have any questions or concerns. This medical document was created using an electronic medical record system with [employer] computerized dictation system. Although these documentations are being carefully reviewed, there may still be some phonetic and typographical changes. The errors are purely typographical, due to imperfection on the software program, and do not reflect any compromise in the patient's medical care. Plan discussed with: Patient, Other ([place]) Visit Coding Pulmonary Billing Provider: PATRICIA CONTRERAS MD Date of Service if different f: Dec 30, 2024 Common Visit Codes: [id number] INP/OBS CARE(HIGH) PATRICIA CONTRERAS MD Dec 30, 2024 23:48
[2024-12-31] VITALS (10 sets, daily range): BP systolic 106–145; BP diastolic 75–88; PULSE 71–90; RESP 18–20; TEMP 97.4–98.5; O2SAT 94–99
[2024-12-31] MEDS ORDERED: CEFEPIME 1GM/50ML 50 ML IV SCH (01:00)
[2024-12-31] MEDS: CEFEPIME 1GM/50ML 50 ML IV SCH (02:35)
[2024-12-31 05:53] LABS: Hemoglobin 9.9 g/dL (12.2-16.2); Nucleated Red Blood Cells % 0.0 %
[2024-12-31 05:56] LABS: Hematocrit 30.0 % (36.0-46.0); Mean Corpuscular Hemoglobin 26.8 pg (28.0-32.0); Mean Corpuscular Volume 81.4 fL (80.0-100.0)
[2024-12-31 06:06] LABS: Alkaline Phosphatase 84 U/L (46-116); Anion Gap 11 (5-15); BUN/Creatinine Ratio 13.5 (10.0-20.0); Blood Urea Nitrogen 13 mg/dL (9-23); Calcium 9.4 mg/dL (8.7-10.4); Carbon Dioxide 30 mmol/L (20-31); Chloride 98 mmol/L (98-107); Glucose 98 mg/dL (74-106); Potassium 4.1 mmol/L (3.5-5.1); Sodium 139 mmol/L (136-145)
[2024-12-31 06:07] LABS: Total Protein 7.7 g/dL (5.7-8.2)
[2024-12-31 06:08] LABS: Albumin 3.6 g/dL (3.2-4.8)
[2024-12-31 06:10] LABS: Alanine Aminotransferase 70 U/L (7-40); Bilirubin, Total 0.2 mg/dL (0.2-1.0)
--- NOTE | 2024-12-31 09:54 | DVHPN2 ---
Reviewed: H&P Changes from previous H/P or p: No Changes General: Per HPI Eyes: No Pain, No Vision change, No Conjunctivae inflammation, No Eyelid inflammation, No Other, No Redness ENT: No Ear pain, No Ear discharge, No Nose pain, No Nose discharge, No Nose congestion, No Mouth pain, No Mouth swelling, No Throat pain, No Throat swelling, No Other Cardiovascular: No Chest Pain, No Palpitations, No Orthopnea, No Paroxysmal Noc. Dyspnea, No Edema, No Lt Headedness, No Other Respiratory: No Cough, No Dry, No Shortness of breath, No SOB with excertion, No Wheezing, No Hemoptysis, No Pleuritic Pain, No Sputum, No Other Gastrointestinal: Nausea; No Vomiting, No Abdominal Pain, No Diarrhea, No Constipation, No Melena, No Hematochezia, No Other Genitourinary: No Dysuria, No Frequency, No Incontinence, No Hematuria, No Retention, No Other Musculoskeletal: No other, No neck pain, No shoulder pain, No arm pain; back pain (risght and left flank pain); No hand pain, No leg pain, No foot pain Skin: No Rash, No Lesions, No Jaundice, No Bruising, No Other Objective Vitals Vital Signs Date Time Temp Pulse Resp B/P (MAP) Pulse Ox O2 Delivery O2 Flow Rate FiO2 12/31/24 08:52 94 Nasal Cannula* 3 32 12/31/24 05:56 92 18 141/99 12/31/24 05:00 98.5 98.5 Intake/Output Intake and Output 12/31/24 07:00 Intake Total 1125 ml Output Total 2200 ml Balance -1075 ml Intake Oral 975 ml IV Total 150 ml Output Urine Total 2200 ml General Appearance: Alert, Oriented X3 HEENT: Atraumatic Lungs: Clear to auscultation Cardiovascular: Regular rate, Normal S1, Normal S2 Abdomen: Normal bowel sounds Medications Current Medications Medications Dose Ordered Sig/Heidi Route Start Time Stop Time Status Last Admin Dose Admin Ondansetron HCl 4 mg Q4HP PRN IV 12/22/24 17:30 12/29/24 05:15 4 MG Docusate Sodium 100 mg BIDPRN PRN PO 12/22/24 17:30 12/27/24 17:58 100 MG Acetaminophen 650 mg Q6HP PRN PO 12/22/24 17:30 Hold Oxycodone HCl 10 mg Q12HP PO 12/25/24 14:00 12/29/24 23:00 10 MG Hydromorphone HCl 1 mg Q2HPRN PRN IV 12/26/24 16:00 12/31/24 05:56 1 MG Ceftriaxone Sodium 50 ml @ 100 mls/hr DAILY@09 IV 12/27/24 09:00 Hold 12/30/24 09:12 100 MLS/HR Baclofen 10 mg BID PO 12/26/24 22:00 12/30/24 22:46 10 MG Trazodone HCl 50 mg HS PO 12/26/24 22:00 12/30/24 22:46 50 MG Doxycycline Hyclate 100 ml @ 50 mls/hr Q12H IV 12/30/24 10:45 12/30/24 22:47 50 MLS/HR Cefepime HCl 50 ml @ 12.5 mls/hr Q8H IV 12/31/24 03:00 12/31/24 02:35 12.5 MLS/HR Laboratory Results Laboratory Tests 12/31/24 05:25 Chemistry Test 12/31/24 05:25 Albumin 3.6 g/dL (3.2-4.8) Calcium Level 9.4 mg/dL (8.7-10.4) Total Protein 7.7 g/dL (5.7-8.2) LFT Test 12/31/24 05:25 Alanine Aminotransferase (ALT) 70 U/L (7-40) H Alkaline Phosphatase 84 U/L (46-116) Aspartate Amino Transferase (AST) 91 U/L (13-40) H Total Bilirubin 0.2 mg/dL (0.2-1.0) Urinalysis Test 12/22/24 21:40 12/26/24 16:32 Urine Test Negative (Negative) Urine Color Colorless (Yellow) Urine Clarity Turbid (Clear) H Urine pH 6.0 (5.0-9.0) Urine Specific [place] 1.013 (1.001-1.035) Urine Protein 1+ (Negative) H Urine Ketones Negative (Negative) Urine Blood 3+ /uL (Negative) H Urine Nitrite Negative (Negative) Urine Bilirubin Negative (Negative) Urine Urobilinogen Normal mg/dL (Negative) Urine Leukocyte Esterase 3+ /uL (Negative) Urine RBC 160 /hpf (0 - 4) Urine Microscopic WBC 146 /HPF (0-5) H Urine Squamous Epithelial Cells Few /hpf (<5) Urine Bacteria Few /hpf (None Seen) H Urine Mucus Few (None Seen) Urine Glucose Normal mg/dL (Normal) Labs and/or images reviewed: Labs reviewed by me, Image(s) reviewed by me Assessment/Plan Assessment/Plan 44-year-old female with past medical history of depression, who was transferred from [facility] for higher level of care due to bilateral, obstructing, staghorn, renal calculi. Patient states she has been having flank pain for a few months. She has not been able to seek medical help due to being homeless. The pain became too severe causing her to go to [facility]. 12/26: Patient was taken for ESWL in had left PCNL nephrostomy tube done on 12/23/2024. Patient has significant pain yesterday, pain continues today. Is also some serosanguineous drainage and leakage around the nephrostomy site which is saturating the packing and dressing. Urology to follow up today. We will maximize pain control. 12/27: Urology has remove the nephrostomy and urinary Calderon catheter. Patient to go to bedside [facility] for urination. Continues to have significant pain and nephrostomy insertion site continuing maximal schedule pain therapy with prn Dilaudid. Patient appears to have left pleural effusion we will repeat x-ray today. Patient requiring 4 L oxygen continue oxygen supplementation with SpO2 goal > 90. We will try some BiPAP prn, pressures 12/5. She is unable to take deep breaths unclear if left pleural effusions related to atelectasis unable to do incentive spirometer as she has significant pain, hoping BiPAP can help. Continue other home medications. She has some mild pitting edema and significant rales, we will try 1 time Lasix 40 IV. 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 We will get pulmonology to see this placing consult for home. We will discuss with the Urology again regarding bilateral hydronephrosis tomorrow. Continue focusing control of pain which is improving. Continue BiPAP which helps patient is significantly better with both pain and breathing.. Creatinine is creeping up. We will stops Ibuprofen continue slow IV fluids. 12/29: Patient continues to have pain in left PCNL site. Nephrology planning for cystoscopy in part possible bilateral ureteral stents today. Today patient has no breath sounds in left lower lobe region. Pulmonology has been consulted and is aware. Appreciate follow up from Urology and pulmonology. We will continue to focus on pain control with prn analgesia and some scheduled analgesia as well. Holding off NSAIDs from yesterday because creatinine was rising. - patient is not on scheduled for OR today, now rescheduled for tomorrow, we will make continue diet and then make NPO midnight again. For tomorrow. Continue pain control. Creatinine improving. Still continuing to hold ibuprofen for now. Pulmonology wants to have put in chest tube, we will put IR consult. 12/30: Patient NPO since midnight, taken to OR today. Also needs to have left IR small bore chest tube seems to be inserted today. Pulmonology to follow up. Continue nasal cannula or equivalent oxygen to maintain sats SpO2 more than 90%. Continue other home medications and prior management plan. Patient reviewed by IR for left chest tube, upon review pleural effusion is minimal and opacity area appears more in line with possible infection consolidation. We will hold off chest tube at this point, and start broad- spectrum antibiotics cefepime and doxycycline. Pulmonology to continue following. Appreciate recommendations. 12/31: Patient continues to feel short of breath on 3 L nasal cannula now improving. Pain from left nephrostomy removal is improving. Yesterday started treatment for pneumonia, continues to be on cefepime doxycycline. We will continue present management and give time for patient to improve likely at least 2 days or more., we will discharge thereafter. We will still need some prolonged IV antibiotics, this is a significant pneumonia complete consolidation of left lower lobe. Diagnosis: Hydronephrosis with renal and ureteral calculus obstruction, status post lithotripsy 12/23/24 Bilateral hydronephrosis, status post nephrostomy tube insertion 12/23/2024 Bilateral obstructing renal calculi, Depression, Plan: Continue IV abx s/p nephrostomy and nephrolithotomy with severe pain IV dilaudid q 3 hours for severe pain Dilaudid 1 mg Q 2, scheduled oxycodone, Scheduled Tylenol Scheduled ibuprofen 400 b.i.d. Schedule Protonix IV 40 daily Baclofen 10 mg b.i.d. Trazodone 50 nightly Continue taking other home medications Continue diet Med surge Full code Plan discussed with: Patient My Orders Orders - MACIEL BLAIR MD Procedure Category Date Status Time Doxycycline PHA 12/30/24 In Process 100mg/100ml 10:45 Transfer Orders XFER 12/31/24 Transmitted 04:00 Cefepime 1gm/50ml PHA 12/31/24 In Process (Maxipime 1gm/50ml) 03:00 Date of Service: Dec 31, 2024 Billing Provider: MACIEL BLAIR MD Common Visit Codes: [id number] INP/OBS CARE(HIGH) MACIEL BLAIR MD Dec 31, 2024 09:54
[2024-12-31] MEDS ORDERED: IPRATROPIUM BROM 0.5 MG/2.5ML INH SOL NEB PRN (10:00)
[2024-12-31] MEDS ORDERED: ALBUTEROL SULF 2.5 MG/0.5ML(0.5%) NEB SOLN NEB PRN (10:00)
--- NOTE | 2024-12-31 23:12 | DVHPN2 ---
Subjective DOS: 12/31/2024 Patient seen and examined at bedside. Currently on supplemental oxygen Overnight events reviewed. Reviewed: H&P Changes from previous H/P or p: No Changes General: Per HPI Eyes: No Pain, No Vision change, No Conjunctivae inflammation, No Eyelid inflammation, No Other, No Redness ENT: No Ear pain, No Ear discharge, No Nose pain, No Nose discharge, No Nose congestion, No Mouth pain, No Mouth swelling, No Throat pain, No Throat swelling, No Other Cardiovascular: No Chest Pain, No Palpitations, No Orthopnea, No Paroxysmal Noc. Dyspnea, No Edema, No Lt Headedness, No Other Respiratory: No Cough, No Dry, No Shortness of breath, No SOB with excertion, No Wheezing, No Hemoptysis, No Pleuritic Pain, No Sputum, No Other Gastrointestinal: Nausea; No Vomiting, No Abdominal Pain, No Diarrhea, No Constipation, No Melena, No Hematochezia, No Other Genitourinary: No Dysuria, No Frequency, No Incontinence, No Hematuria, No Retention, No Other Musculoskeletal: No other, No neck pain, No shoulder pain, No arm pain; back pain (risght and left flank pain); No hand pain, No leg pain, No foot pain Skin: No Rash, No Lesions, No Jaundice, No Bruising, No Other Objective Vitals Vital Signs Date Time Temp Pulse Resp B/P (MAP) Pulse Ox O2 Delivery O2 Flow Rate FiO2 12/31/24 21:00 97.6 90 19 106/75 (85) 97 97.6 12/31/24 08:52 Nasal Cannula* 3 32 Intake/Output Intake and Output 12/31/24 07:00 Intake Total 1125 ml Output Total 2200 ml Balance -1075 ml Intake Oral 975 ml IV Total 150 ml Output Urine Total 2200 ml Exam Gen.: Patient lying in bed in no apparent distress. On supplemental oxygen Head: Normocephalic, atraumatic. Eyes: EOMI/PERRLA. Ears: Normal hearing. Normal anatomy. Neck/trachea: Trachea midline, supple. Nose: Normal external anatomy. Mouth: Moist mucous membranes. Chest: Decreased air entry bilaterally. No wheezing or rhonchi. Cardiovascular: Positive S1, positive S2. Regular rate and rhythm. Abdomen: Positive bowel sounds in all 4 quadrants. Soft, non-tender, non- distended. : Deferred. Rectal: Deferred. Skin: Warm, dry. Intact. Extremities: 2+ radial pulses bilaterally. No lower extremity edema. Neuro: Awake, alert, oriented x3. No gross motor or sensory deficits. Cranial nerves II through XII intact. Gait not assessed. General Appearance: Alert, Oriented X3 HEENT: Atraumatic Lungs: Clear to auscultation Cardiovascular: Regular rate, Normal S1, Normal S2 Abdomen: Normal bowel sounds Medications Current Medications Medications Dose Ordered Sig/Heidi Route Start Time Stop Time Status Last Admin Dose Admin Ondansetron HCl 4 mg Q4HP PRN IV 12/22/24 17:30 12/31/24 18:47 4 MG Docusate Sodium 100 mg BIDPRN PRN PO 12/22/24 17:30 12/27/24 17:58 100 MG Acetaminophen 650 mg Q6HP PRN PO 12/22/24 17:30 Hold Oxycodone HCl 10 mg Q12HP PO 12/25/24 14:00 12/31/24 21:16 10 MG Hydromorphone HCl 1 mg Q2HPRN PRN IV 12/26/24 16:00 12/31/24 16:40 1 MG Ceftriaxone Sodium 50 ml @ 100 mls/hr DAILY@09 IV 12/27/24 09:00 Hold 12/30/24 09:12 100 MLS/HR Baclofen 10 mg BID PO 12/26/24 22:00 12/31/24 21:08 10 MG Trazodone HCl 50 mg HS PO 12/26/24 22:00 12/31/24 21:09 50 MG Doxycycline Hyclate 100 ml @ 50 mls/hr Q12H IV 12/30/24 10:45 12/31/24 09:49 50 MLS/HR Cefepime HCl 50 ml @ 12.5 mls/hr Q8H IV 12/31/24 03:00 12/31/24 18:41 12.5 MLS/HR Albuterol 1.25 mg Q4HPRN PRN NEB 12/31/24 10:00 Ipratropium [place] 0.5 mg Q4HPRN PRN NEB 12/31/24 10:00 Laboratory Results Laboratory Tests 12/31/24 05:25 Chemistry Test 12/31/24 05:25 Albumin 3.6 g/dL (3.2-4.8) Calcium Level 9.4 mg/dL (8.7-10.4) Total Protein 7.7 g/dL (5.7-8.2) LFT Test 12/31/24 05:25 Alanine Aminotransferase (ALT) 70 U/L (7-40) H Alkaline Phosphatase 84 U/L (46-116) Aspartate Amino Transferase (AST) 91 U/L (13-40) H Total Bilirubin 0.2 mg/dL (0.2-1.0) Urinalysis Test 12/22/24 21:40 12/26/24 16:32 Urine Test Negative (Negative) Urine Color Colorless (Yellow) Urine Clarity Turbid (Clear) H Urine pH 6.0 (5.0-9.0) Urine Specific [place] 1.013 (1.001-1.035) Urine Protein 1+ (Negative) H Urine Ketones Negative (Negative) Urine Blood 3+ /uL (Negative) H Urine Nitrite Negative (Negative) Urine Bilirubin Negative (Negative) Urine Urobilinogen Normal mg/dL (Negative) Urine Leukocyte Esterase 3+ /uL (Negative) Urine RBC 160 /hpf (0 - 4) Urine Microscopic WBC 146 /HPF (0-5) H Urine Squamous Epithelial Cells Few /hpf (<5) Urine Bacteria Few /hpf (None Seen) H Urine Mucus Few (None Seen) Urine Glucose Normal mg/dL (Normal) Assessment/Plan Assessment/Plan Impression: Acute hypoxic respiratory failure Dependence on supplemental oxygen Pleural effusion, loculated. Atelectasis Nephrostomy Morbid obesity, BMI 40 Events: Currently on supplemental oxygen 3 LPM NC Taper O2 as tolerated Shortness of breath is improving Pain from left nephrostomy removal is improving. IR consulted for chest tube placement. Limited chest ultrasound revealed Left pleural effusion is present. No right pleural effusion Discussed with IR about small amount of pleural effusion. Per IR, no indication for thoracentesis at this time. Started on treatment with abx course for pneumonia on 12/30/24 Continue antibiotic course - cefepime and doxycycline Incentive spirometry Continue bronchodilators Pt with pneumonia, complete consolidation of left lower lobe - will need prolonged IV antibiotic course. Recommend repeat CT chest in 6 to 8 weeks to assess for interval changes. Pain control Avoid oversedation Labs and imaging reviewed. Rest of plan as noted below. Plan: Supplemental oxygen Titrate to keep O2 sats above 92% BiPAP PRN. CT abdomen-pelvis reviewed, demonstrates prominent bilateral renal calculi including a staghorn calculus in the right renal pelvis. Mild bilateral hydronephrosis, urothelial thickening, and periureteral soft tissue stranding. Small to moderate partially loculated left pleural effusion and consolidation of the left lung base with air bronchograms which could reflect atelectasis and/or pneumonia. Continue antibiotics Incentive spirometry Pain control Avoid oversedation Follow up Nephrology recs Monitor renal function. Monitor electrolytes. Supplement as necessary. Monitor ins and outs. Recommend diet and lifestyle modifications for weight reduction Obesity complicates all care DVT prophylaxis. Prognosis: Poor given patient's multiple co-morbidities. Rest of plan per hospitalist and other consultants. Thank you, Dr. Aceves, for allowing me to participate in this patient's care. Further recommendations will depend on the patient's clinical course. Please do not hesitate to contact me if you have any questions or concerns. This medical document was created using an electronic medical record system with [employer] dictation system. Although these documentations are being carefully reviewed, there may still be some phonetic and typographical changes. The errors are purely typographical, due to imperfection on the software program, and do not reflect any compromise in the patient's medical care. Plan discussed with: Patient, Other ([address]) Visit Coding Pulmonary Billing Provider: PATRICIA CONTRERAS MD Date of Service if different f: Dec 31, 2024 Common Visit Codes: [id number] INP/OBS CARE(HIGH) PATRICIA CONTRERAS MD Dec 31, 2024 23:12
[2025-01-01] VITALS (10 sets, daily range): BP systolic 104–149; BP diastolic 64–99; PULSE 71–94; RESP 18–20; TEMP 36.8; O2SAT 94–100
[2025-01-01 07:03] LABS: Hematocrit 29.4 % (36.0-46.0); Hemoglobin 9.6 g/dL (12.2-16.2); Mean Corpuscular Hemoglobin 26.6 pg (28.0-32.0)
[2025-01-01 07:04] LABS: Mean Corpuscular Volume 81.0 fL (80.0-100.0); Nucleated Red Blood Cells % 0.0 %
[2025-01-01 07:17] LABS: Albumin 3.4 g/dL (3.2-4.8); Alkaline Phosphatase 70 U/L (46-116); Anion Gap 8 (5-15); BUN/Creatinine Ratio 13.6 (10.0-20.0); Bilirubin, Total 0.3 mg/dL (0.2-1.0); Blood Urea Nitrogen 14 mg/dL (9-23); Calcium 9.2 mg/dL (8.7-10.4); Glucose 101 mg/dL (74-106); Potassium 4.4 mmol/L (3.5-5.1); Sodium 137 mmol/L (136-145); Total Protein 7.4 g/dL (5.7-8.2)
[2025-01-01 07:25] LABS: Alanine Aminotransferase 50 U/L (7-40); Carbon Dioxide 32 mmol/L (20-31); Chloride 97 mmol/L (98-107)
--- NOTE | 2025-01-01 10:03 | DVHDS2 ---
Discharge Summary Date of Admission Dec 22, 2024 at 17:02 Date of Discharge: Jan 01, 2025 Labs/Diagnostic Data: Laboratory Results Test 01/01/25 06:20 12/27/24 14:05 12/27/24 11:20 12/27/24 09:27 White Blood Count 8.2 10^3/uL (4.4-10.8) Red Blood Count 3.63 10^6/uL (4.0-5.20) Hemoglobin 9.6 g/dL (12.2-16.2) Hematocrit 29.4 % (36.0-46.0) Mean Corpuscular Volume 81.0 fL (80.0-100.0) Mean Corpuscular Hemoglobin 26.6 pg (28.0-32.0) Mean Corpuscular Hemoglobin Concent 32.8 g/dL (32.0-36.0) Red Cell Distribution Width 16.0 % (11.8-14.3) Platelet Count 573 10^3/uL (140-450) Mean Platelet Volume 7.6 fL (6.9-10.8) Neutrophils (%) (Auto) 56.3 % (37.0-80.0) Lymphocytes (%) (Auto) 30.2 % (10.0-50.0) Monocytes (%) (Auto) 9.2 % (0.0-12.0) Eosinophils (%) (Auto) 3.4 % (0.0-7.0) Basophils (%) (Auto) 0.9 % (0.0-2.0) Neutrophils # (Auto) 4.6 10 ^3/uL (1.6-8.6) Lymphocytes # (Auto) 2.5 10 ^3/uL (0.4-5.4) Monocytes # (Auto) 0.8 10 ^3/uL (0-1.3) Eosinophils # (Auto) 0.3 10 ^3/uL (0-0.8) Basophils # (Auto) 0.1 10 ^3/uL (0-0.2) Nucleated Red Blood Cells 0.0 % Sodium Level 137 mmol/L (136-145) Potassium Level 4.4 mmol/L (3.5-5.1) Chloride Level 97 mmol/L (98-107) Carbon Dioxide Level 32 mmol/L (20-31) Anion Gap 8 (5-15) Blood Urea Nitrogen 14 mg/dL (9-23) Creatinine 1.03 mg/dL (0.550-1.02) Glomerular Filtration Rate Calc 69 mL/min (>90) BUN/Creatinine Ratio 13.6 (10.0-20.0) Serum Glucose 101 mg/dL (74-106) Calcium Level 9.2 mg/dL (8.7-10.4) Total Bilirubin 0.3 mg/dL (0.2-1.0) Aspartate Amino Transferase (AST) 40 U/L (13-40) Alanine Aminotransferase (ALT) 50 U/L (7-40) Alkaline Phosphatase 70 U/L (46-116) Total Protein 7.4 g/dL (5.7-8.2) Albumin 3.4 g/dL (3.2-4.8) Blood Gas Specimen Type Arterial Blood Gas Sample Site Right radial Blood Gas Patient Temperature 37.0 Arterial Blood Date Drawn [id number] Arterial Blood pH 7.434 (7.350-7.450) Arterial Blood Partial Pressure CO2 45.4 mmHg (32.0-45.0) Arterial Blood Partial Pressure O2 81.0 mmHg (83.0-108.0) Arterial Blood HCO3 29.7 mmol/L (21.0-28.0) Arterial Blood Oxygen Saturation 95.5 % (94.0-98.0) Arterial Blood Base Excess 4.8 mmol/L (-2.0-3.0) Arterial Blood Oxyhemoglobin 94.1 % (94.0-98.0) Arterial Blood Carboxyhemoglobin 1.4 % (0.5-1.5) Arterial Blood Methemoglobin 0.1 % (0.0-1.5) Ji Test Yes Blood Gas Total Hemoglobin 13.00 g/dL (12.0-16.0) Blood Gas Set Respiration Rate 14.0 Blood Gas Modality Mask - bipap Blood Gas Spontaneous Rate 21 FiO2 % 45.0 Blood Gas EPAP 5 Blood Gas IPAP 12 Specimen Drawn By farhan oliva Lactic Acid Level 0.8 mmol/L (0.4-2.0) B-Type Natriuretic Peptide 15.59 pg/mL (0-100) Test 12/26/24 16:32 12/24/24 15:05 12/22/24 21:40 12/22/24 18:24 Urine Color Colorless (Yellow) Urine Clarity Turbid (Clear) Urine pH 6.0 (5.0-9.0) Urine Specific [place] 1.013 (1.001-1.035) Urine Protein 1+ (Negative) Urine Ketones Negative (Negative) Urine Blood 3+ /uL (Negative) Urine Nitrite Negative (Negative) Urine Bilirubin Negative (Negative) Urine Urobilinogen Normal mg/dL (Negative) Urine Leukocyte Esterase 3+ /uL (Negative) Urine RBC 160 /hpf (0 - 4) Urine Microscopic WBC 146 /HPF (0-5) Urine Squamous Epithelial Cells Few /hpf (<5) Urine Bacteria Few /hpf (None Seen) Urine Mucus Few (None Seen) Urine Glucose Normal mg/dL (Normal) Urine Test Negative (Negative) Prothrombin Time 10.9 sec (9.3-11.8) Prothrombin Time INR 1.03 (0.9-1.15) Activated Partial Thromboplast Time 25.6 SEC (24.5-34.5) Other Laboratory Tests 01/01/25 06:20 Brief Hx & Hospital Course: 44-year-old female with past medical history of depression, who was transferred from [facility] for higher level of care due to bilateral, obstructing, staghorn, renal calculi. Patient states she has been having flank pain for a few months. She has not been able to seek medical help due to being homeless. The pain became too severe causing her to go to [facility]. 12/26: Patient was taken for ESWL in had left PCNL nephrostomy tube done on 12/23/2024. Patient has significant pain yesterday, pain continues today. Is also some serosanguineous drainage and leakage around the nephrostomy site which is saturating the packing and dressing. Urology to follow up today. We will maximize pain control. 12/27: Urology has remove the nephrostomy and urinary Calderon catheter. Patient to go to bedside commode for urination. Continues to have significant pain and nephrostomy insertion site continuing maximal schedule pain therapy with prn Dilaudid. Patient appears to have left pleural effusion we will repeat x-ray today. Patient requiring 4 L oxygen continue oxygen supplementation with SpO2 goal > 90. We will try some BiPAP prn, pressures 12/5. She is unable to take deep breaths unclear if left pleural effusions related to atelectasis unable to do incentive spirometer as she has significant pain, hoping BiPAP can help. Continue other home medications. She has some mild pitting edema and significant rales, we will try 1 time Lasix 40 IV. Patient's anion gap we will check BMP be [employer] and lactic 12/28: Patient CT chest abdomen pelvis, concerning for ongoing bilateral hydronephrosis and, also now has a left loculated pleural effusion. We will get pulmonology to see this placing consult for home. We will discuss with the Urology again regarding bilateral hydronephrosis tomorrow. Continue focusing control of pain which is improving. Continue BiPAP which helps patient is significantly better with both pain and breathing.. Creatinine is creeping up. We will stops Ibuprofen continue slow IV fluids. 12/29: Patient continues to have pain in left PCNL site. Nephrology planning for cystoscopy in part possible bilateral ureteral stents today. Today patient has no breath sounds in left lower lobe region. Pulmonology has been consulted and is aware. Appreciate follow up from Urology and pulmonology. We will continue to focus on pain control with prn analgesia and some scheduled analgesia as well. Holding off NSAIDs from yesterday because creatinine was rising. - patient is not on scheduled for OR today, now rescheduled for tomorrow, we will make continue diet and then make NPO midnight again. For tomorrow. Continue pain control. Creatinine improving. Still continuing to hold ibuprofen for now. Pulmonology wants to have put in chest tube, we will put IR consult. 12/30: Patient NPO since midnight, taken to OR today. Also needs to have left IR small bore chest tube seems to be inserted today. Pulmonology to follow up. Continue nasal cannula or equivalent oxygen to maintain sats SpO2 more than 90%. Continue other home medications and prior management plan. Patient reviewed by IR for left chest tube, upon review pleural effusion is minimal and opacity area appears more in line with possible infection consolidation. We will hold off chest tube at this point, and start broad- spectrum antibiotics cefepime and doxycycline. Pulmonology to continue following. Appreciate recommendations. 12/31: Patient continues to feel short of breath on 3 L nasal cannula now improving. Pain from left nephrostomy removal is improving. Yesterday started treatment for pneumonia, continues to be on cefepime doxycycline. We will continue present management and give time for patient to improve likely at least 2 days or more., we will discharge thereafter. We will still need some prolonged IV antibiotics, this is a significant pneumonia complete consolidation of left lower lobe. 01/01: No increased work of breathing, weaning down oxygen now to 2 L nasal cannula continuous. We will get oxygen requirement with ABG on room air with help of RT. Patient improving looking much better, pain improving. Controlled by p.o. analgesia. Urology signed off we will follow up outpatient. Pulmonology okay with discharge we will follow up outpatient for resolution. Patient will need 10 days of Augmentin 875 twice daily and doxycycline 100 mg twice daily. Patient to continue to take whole Burmese yogurt tbsp full twice daily. Follow up with PCP 1 week, follow up with [facility] clinic. Stable for discharge vital signs stable. Diagnosis: Acute hypoxic respiratory failure Pneumonia, lobar, Gram-negative Gram-positive likely, complicated with hypoxemia Hydronephrosis with renal and ureteral calculus obstruction, status post lithotripsy 12/23/24 Bilateral hydronephrosis, status post left nephrostomy tube insertion 12/23/2024, status post removal Intractable pain at nephrostomy site, status post removal PCN Bilateral obstructing renal calculi, History of Depression Plan:- -Urology signed off we will follow up outpatient. -Pulmonology okay with discharge we will follow up outpatient for resolution. Continue use of oxygen 2 L nasal cannula continues -For pain use 1st line Tylenol OTC, second-line ibuprofen OTC, 3rd line use prescription [place] 10 mg up to every 6 hours as needed -Augmentin 875 twice daily and doxycycline 100 mg twice daily. do for 10 days. -Patient to continue to take whole Burmese yogurt tbsp full twice daily. -Follow up with PCP 1 week, -follow up with DC clinic. Condition at Discharge: Fair Final Diagnosis/Problems List Acute hypoxic respiratory failure Pneumonia, lobar, Gram-negative Gram-positive likely, complicated with hypoxemia Hydronephrosis with renal and ureteral calculus obstruction, status post lithotripsy 12/23/24 Bilateral hydronephrosis, status post left nephrostomy tube insertion 12/23/2024, status post removal Intractable pain at nephrostomy site, status post removal PCN Bilateral obstructing renal calculi, History of Depression Discharge Disposition: Home Discharge Instruct/Medications Scheduled Cephalexin (Keflex Capsule), 250 MG PO QID Discharge Statement: "Patient was advised to return to the ER or call 911 if any headaches, dizziness, shortness of breath, chest pain, abdominal pain, bleeding, fevers, or worsening of medical condition. Patient was counseled about treatment plan, medications, possible side effects, patientverbalized understanding. All questions were answered to the best of my ability. This discharge took greater then 30 minutes in planning, reviewing documentation, counseling the patient, and discussing with other team members." ASSESSMENT ASSESSMENT Assessment Date of Service: Jan 01, 2025 Billing Provider: MACIEL BLAIR MD Common Visit Codes: [id number] DISCH DAY >30min MACIEL BLAIR MD Jan 01, 2025 10:03
[2025-01-01 12:24] LABS: Base Excess 8.5 mmol/L (-2.0-3.0)
[2025-01-01] MEDS ORDERED: DOXY100C79 PO (13:42)
[2025-01-01] MEDS ORDERED: AUG875T PO (13:42)
[2025-01-01] MEDS ORDERED: HYDR-4798 PO (13:42)
--- NOTE | 2025-01-01 17:43 | DVHPN2 ---
Progress Note - Dictate Date Seen: Jan 01, 2025 Medical Necessity Reason Pt with a Central, PICC or Fol: No vital signs Vital Sign Date Time Temp Pulse Resp B/P (MAP) Pulse Ox O2 Delivery O2 Flow Rate FiO2 01/01/25 16:20 36.8 01/01/25 12:50 86 20 135/70 (91) 94 01/01/25 08:00 Nasal Cannula* 2 28 Total Intake and Output 12/31/24 12/31/24 01/01/25 15:00 23:00 07:00 Intake Total 100 ml 800 ml 975 ml Output Total 800 ml 775 ml Balance 100 ml 0 ml 200 ml medications Current Medications Medications Dose Ordered Sig/Heidi Route Start Time Stop Time Status Last Admin Dose Admin Ondansetron HCl 4 mg Q4HP PRN IV 12/22/24 17:30 01/01/25 07:49 4 MG Docusate Sodium 100 mg BIDPRN PRN PO 12/22/24 17:30 12/27/24 17:58 100 MG Acetaminophen 650 mg Q6HP PRN PO 12/22/24 17:30 Hold Oxycodone HCl 10 mg Q12HP PO 12/25/24 14:00 01/01/25 10:01 10 MG Hydromorphone HCl 1 mg Q2HPRN PRN IV 12/26/24 16:00 01/01/25 03:15 1 MG Ceftriaxone Sodium 50 ml @ 100 mls/hr DAILY@09 IV 12/27/24 09:00 Hold 12/30/24 09:12 100 MLS/HR Baclofen 10 mg BID PO 12/26/24 22:00 01/01/25 10:01 10 MG Trazodone HCl 50 mg HS PO 12/26/24 22:00 12/31/24 21:09 50 MG Doxycycline Hyclate 100 ml @ 50 mls/hr Q12H IV 12/30/24 10:45 01/01/25 10:01 50 MLS/HR Cefepime HCl 50 ml @ 12.5 mls/hr Q8H IV 12/31/24 03:00 01/01/25 03:05 12.5 MLS/HR Albuterol 1.25 mg Q4HPRN PRN NEB 12/31/24 10:00 Ipratropium [place] 0.5 mg Q4HPRN PRN NEB 12/31/24 10:00 laboratory and microbiology Laboratory Tests 01/01/25 06:20 Test 01/01/25 06:20 Range/Units Serum Glucose 101 74-106 mg/dL Assessment/Plan Impression Acute hypoxemic respiratory failure Loculated pleural effusions Morbid obesity Pneumonia Atelectasis Patient seen and examined Events Low oxygen requirements On 2 liters nasal cannula No distress S/p left nephrostomy Labs and imaging reviewed Management Supplemental oxygen Titrate to maintain sats 90% or above Incentive spirometry Continue antibiotics F/u cultures Bronchodilators Monitor renal function Monitor electrolytes Supplement as needed DVT prophylaxis Dietary Evaluation Review Comments: Monitor PO intake, lab values, weight trend, and I/O Expected Outcomes/Goals: Intake to meet >75% estimated needs FU 3-5 days Plan discussed with: Patient AVERY SANTANA MD Jan 01, 2025 17:43
[2025-01-02 05:00] VITALS: BP 112/82; PULSE 75; RESP 19; TEMP 98.1; O2SAT 95
[2025-01-02 07:05] VITALS: BP 112/82; PULSE 81; RESP 18; O2SAT 97
[2025-01-02 09:00] VITALS: BP 129/87; PULSE 75; RESP 17; TEMP 97.7; O2SAT 100
--- NOTE | 2025-01-02 09:41 | DVHPN2 ---
Progress Note - Dictate Date Seen: Jan 02, 2025 Medical Necessity Reason Pt with a Central, PICC or Fol: No vital signs Vital Sign Date Time Temp Pulse Resp B/P (MAP) Pulse Ox O2 Delivery O2 Flow Rate FiO2 01/02/25 09:00 97.7 75 17 129/87 (101) 100 97.7 01/01/25 21:40 Nasal Cannula 2.0 01/01/25 21:40 28 Total Intake and Output 01/01/25 01/01/25 01/02/25 15:00 23:00 07:00 Intake Total 740 ml 1500 ml Balance 740 ml 1500 ml medications Current Medications Medications Dose Ordered Sig/Heidi Route Start Time Stop Time Status Last Admin Dose Admin Ondansetron HCl 4 mg Q4HP PRN IV 12/22/24 17:30 01/02/25 04:36 4 MG Docusate Sodium 100 mg BIDPRN PRN PO 12/22/24 17:30 12/27/24 17:58 100 MG Acetaminophen 650 mg Q6HP PRN PO 12/22/24 17:30 Hold Oxycodone HCl 10 mg Q12HP PO 12/25/24 14:00 01/01/25 22:00 10 MG Hydromorphone HCl 1 mg Q2HPRN PRN IV 12/26/24 16:00 01/02/25 02:53 1 MG Ceftriaxone Sodium 50 ml @ 100 mls/hr DAILY@09 IV 12/27/24 09:00 Hold 12/30/24 09:12 100 MLS/HR Baclofen 10 mg BID PO 12/26/24 22:00 01/01/25 22:00 10 MG Trazodone HCl 50 mg HS PO 12/26/24 22:00 01/01/25 22:00 50 MG Doxycycline Hyclate 100 ml @ 50 mls/hr Q12H IV 12/30/24 10:45 01/01/25 22:00 50 MLS/HR Cefepime HCl 50 ml @ 12.5 mls/hr Q8H IV 12/31/24 03:00 01/02/25 02:35 12.5 MLS/HR Albuterol 1.25 mg Q4HPRN PRN NEB 12/31/24 10:00 Ipratropium [place] 0.5 mg Q4HPRN PRN NEB 12/31/24 10:00 laboratory and microbiology Laboratory Tests 01/01/25 06:20 Test 01/01/25 06:20 Range/Units Serum Glucose 101 74-106 mg/dL Assessment/Plan Impression Acute hypoxemic respiratory failure Loculated pleural effusions Morbid obesity Pneumonia Atelectasis Patient seen and examined Events Low oxygen requirements On 2 liters nasal cannula No distress S/p left nephrostomy Labs and imaging reviewed Management Supplemental oxygen Titrate to maintain sats 90% or above Incentive spirometry Continue antibiotics F/u cultures Bronchodilators Monitor renal function Monitor electrolytes Supplement as needed DVT prophylaxis Dietary Evaluation Review Comments: Monitor PO intake, lab values, weight trend, and I/O Expected Outcomes/Goals: Intake to meet >75% estimated needs FU 3-5 days Plan discussed with: Patient AVERY SANTANA MD Jan 02, 2025 09:41
--- NOTE | 2025-01-02 10:52 | DVHPN2 ---
Reviewed: H&P Changes from previous H/P or p: No Changes General: Per HPI Eyes: No Pain, No Vision change, No Conjunctivae inflammation, No Eyelid inflammation, No Other, No Redness ENT: No Ear pain, No Ear discharge, No Nose pain, No Nose discharge, No Nose congestion, No Mouth pain, No Mouth swelling, No Throat pain, No Throat swelling, No Other Cardiovascular: No Chest Pain, No Palpitations, No Orthopnea, No Paroxysmal Noc. Dyspnea, No Edema, No Lt Headedness, No Other Respiratory: No Cough, No Dry, No Shortness of breath, No SOB with excertion, No Wheezing, No Hemoptysis, No Pleuritic Pain, No Sputum, No Other Gastrointestinal: Nausea; No Vomiting, No Abdominal Pain, No Diarrhea, No Constipation, No Melena, No Hematochezia, No Other Genitourinary: No Dysuria, No Frequency, No Incontinence, No Hematuria, No Retention, No Other Musculoskeletal: No other, No neck pain, No shoulder pain, No arm pain; back pain (risght and left flank pain); No hand pain, No leg pain, No foot pain Skin: No Rash, No Lesions, No Jaundice, No Bruising, No Other Objective Vitals Vital Signs Date Time Temp Pulse Resp B/P (MAP) Pulse Ox O2 Delivery O2 Flow Rate FiO2 01/02/25 09:00 97.7 75 17 129/87 (101) 100 97.7 01/01/25 21:40 Nasal Cannula 2.0 01/01/25 21:40 28 Intake/Output Intake and Output 01/02/25 07:00 Intake Total 2240 ml Balance 2240 ml Intake Oral 2240 ml # Voids 6 General Appearance: Alert, Oriented X3 HEENT: Atraumatic Lungs: Clear to auscultation Cardiovascular: Regular rate, Normal S1, Normal S2 Abdomen: Normal bowel sounds Medications Current Medications Medications Dose Ordered Sig/Heidi Route Start Time Stop Time Status Last Admin Dose Admin Ondansetron HCl 4 mg Q4HP PRN IV 12/22/24 17:30 01/02/25 04:36 4 MG Docusate Sodium 100 mg BIDPRN PRN PO 12/22/24 17:30 12/27/24 17:58 100 MG Acetaminophen 650 mg Q6HP PRN PO 12/22/24 17:30 Hold Oxycodone HCl 10 mg Q12HP PO 12/25/24 14:00 01/02/25 10:25 10 MG Hydromorphone HCl 1 mg Q2HPRN PRN IV 12/26/24 16:00 01/02/25 02:53 1 MG Ceftriaxone Sodium 50 ml @ 100 mls/hr DAILY@09 IV 12/27/24 09:00 Hold 12/30/24 09:12 100 MLS/HR Baclofen 10 mg BID PO 12/26/24 22:00 01/02/25 10:25 10 MG Trazodone HCl 50 mg HS PO 12/26/24 22:00 01/01/25 22:00 50 MG Doxycycline Hyclate 100 ml @ 50 mls/hr Q12H IV 12/30/24 10:45 01/01/25 22:00 50 MLS/HR Cefepime HCl 50 ml @ 12.5 mls/hr Q8H IV 12/31/24 03:00 01/02/25 10:26 12.5 MLS/HR Albuterol 1.25 mg Q4HPRN PRN NEB 12/31/24 10:00 Ipratropium [place] 0.5 mg Q4HPRN PRN NEB 12/31/24 10:00 Laboratory Results Laboratory Tests 01/01/25 06:20 Urinalysis Test 12/22/24 21:40 12/26/24 16:32 Urine Test Negative (Negative) Urine Color Colorless (Yellow) Urine Clarity Turbid (Clear) H Urine pH 6.0 (5.0-9.0) Urine Specific [place] 1.013 (1.001-1.035) Urine Protein 1+ (Negative) H Urine Ketones Negative (Negative) Urine Blood 3+ /uL (Negative) H Urine Nitrite Negative (Negative) Urine Bilirubin Negative (Negative) Urine Urobilinogen Normal mg/dL (Negative) Urine Leukocyte Esterase 3+ /uL (Negative) Urine RBC 160 /hpf (0 - 4) Urine Microscopic WBC 146 /HPF (0-5) H Urine Squamous Epithelial Cells Few /hpf (<5) Urine Bacteria Few /hpf (None Seen) H Urine Mucus Few (None Seen) Urine Glucose Normal mg/dL (Normal) Blood Gas Results Test 01/01/25 12:17 Arterial Blood pH 7.488 (7.350-7.450) FiO2 % 21.0 Microbiology Microbiology Date/Time Source Procedure Growth Status 12/31/24 11:02 Sputum Gram Stain - Final Resulted 12/31/24 11:02 Sputum Respiratory Culture - Preliminary Resulted Labs and/or images reviewed: Labs reviewed by me, Image(s) reviewed by me Assessment/Plan Assessment/Plan 44-year-old female with past medical history of depression, who was transferred from [facility] for higher level of care due to bilateral, obstructing, staghorn, renal calculi. Patient states she has been having flank pain for a few months. She has not been able to seek medical help due to being homeless. The pain became too severe causing her to go to [facility]. 12/26: Patient was taken for ESWL in had left PCNL nephrostomy tube done on 12/23/2024. Patient has significant pain yesterday, pain continues today. Is also some serosanguineous drainage and leakage around the nephrostomy site which is saturating the packing and dressing. Urology to follow up today. We will maximize pain control. 12/27: Urology has remove the nephrostomy and urinary Calderon catheter. [facility]. Continues to have significant pain and nephrostomy insertion site continuing maximal schedule pain therapy with prn Dilaudid. Patient appears to have left pleural effusion we will repeat x-ray today. Patient requiring 4 L oxygen continue oxygen supplementation with SpO2 goal > 90. We will try some BiPAP prn, pressures 12/5. She is unable to take deep breaths unclear if left pleural effusions related to atelectasis unable to do incentive spirometer as she has significant pain, hoping BiPAP can help. Continue other home medications. She has some mild pitting edema and significant rales, we will try 1 time Lasix 40 IV. 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 We will get pulmonology to see this placing consult for home. We will discuss with the Urology again regarding bilateral hydronephrosis tomorrow. Continue focusing control of pain which is improving. Continue BiPAP which helps patient is significantly better with both pain and breathing.. Creatinine is creeping up. We will stops Ibuprofen continue slow IV fluids. 12/29: Patient continues to have pain in left PCNL site. Nephrology planning for cystoscopy in part possible bilateral ureteral stents today. Today patient has no breath sounds in left lower lobe region. Pulmonology has been consulted and is aware. Appreciate follow up from Urology and pulmonology. We will continue to focus on pain control with prn analgesia and some scheduled analgesia as well. Holding off NSAIDs from yesterday because creatinine was rising. - patient is not on scheduled for OR today, now rescheduled for tomorrow, we will make continue diet and then make NPO midnight again. For tomorrow. Continue pain control. Creatinine improving. Still continuing to hold ibuprofen for now. Pulmonology wants to have put in chest tube, we will put IR consult. 12/30: Patient NPO since midnight, taken to OR today. Also needs to have left IR small bore chest tube seems to be inserted today. Pulmonology to follow up. Continue nasal cannula or equivalent oxygen to maintain sats SpO2 more than 90%. Continue other home medications and prior management plan. Patient reviewed by IR for left chest tube, upon review pleural effusion is minimal and opacity area appears more in line with possible infection consolidation. We will hold off chest tube at this point, and start broad- spectrum antibiotics cefepime and doxycycline. Pulmonology to continue following. Appreciate recommendations. 12/31: Patient continues to feel short of breath on 3 L nasal cannula now improving. Pain from left nephrostomy removal is improving. Yesterday started treatment for pneumonia, continues to be on cefepime doxycycline. We will continue present management and give time for patient to improve likely at least 2 days or more., we will discharge thereafter. We will still need some prolonged IV antibiotics, this is a significant pneumonia complete consolidation of left lower lobe. 01/01: Patient discharge. See DC summary from 01/01/202501/02: Patient's oxygen was not delivered, hope to get down oxygen delivery today, we will resume discharge plan as per yesterday's orders thereafter. Diagnosis: Hydronephrosis with renal and ureteral calculus obstruction, status post lithotripsy 12/23/24 Bilateral hydronephrosis, status post nephrostomy tube insertion 12/23/2024 Bilateral obstructing renal calculi, Depression, Plan: Continue IV abx s/p nephrostomy and nephrolithotomy with severe pain IV dilaudid q 3 hours for severe pain Dilaudid 1 mg Q 2, scheduled oxycodone, Scheduled Tylenol Scheduled ibuprofen 400 b.i.d. Schedule Protonix IV 40 daily Baclofen 10 mg b.i.d. Trazodone 50 nightly Continue taking other home medications Continue diet Med surge Full code Plan discussed with: Patient My Orders Orders - MACIEL BLAIR MD Procedure Category Date Status Time * Emissions Testing Technician CONS 01/01/25 Transmitted Consult Discharge DISCHARGE 01/01/25 Transmitted 13:43 Date of Service: Jan 02, 2025 Billing Provider: MACIEL BLAIR MD Common Visit Codes: [id number] INP/OBS CARE(MOD) MACIEL BLAIR MD Jan 02, 2025 10:52
[2025-01-02 13:00] VITALS: BP 133/98; PULSE 82; RESP 17; TEMP 97.7; O2SAT 98
[2025-01-02 17:00] VITALS: BP 112/81; PULSE 78; RESP 16; TEMP 97.3; O2SAT 100
== END 2025-01-02 17:40 | disposition home or self-care (01) | DRG 443 ==
LOC: EAST 17:02 → TELE-EAST 12-27 10:22 → EAST 12-31 05:11
PROVIDERS: ADMIT Student in an Organized Health Care Education/Training Program; ATTEND Student in an Organized Health Care Education/Training Program
PROC: BT121ZZ Fluoroscopy of Left Kidney using Low Osmolar Contrast (ICD-10-PCS; 2024-12-23)
PROC: 0T9430Z Drainage of Left Kidney Pelvis with Drainage Device, Percutaneous Approach (ICD-10-PCS; 2024-12-23)
PROC: 0TC18ZZ Extirpation of Matter from Left Kidney, Via Natural or Artificial Opening Endoscopic (ICD-10-PCS; principal; 2024-12-23 13:52)
PROC: 5A09357 Assistance with Respiratory Ventilation, Less than 24 Consecutive Hours, Continuous Positive Airway Pressure (ICD-10-PCS; 2024-12-26)
PROC: 5A09357 Assistance with Respiratory Ventilation, Less than 24 Consecutive Hours, Continuous Positive Airway Pressure (ICD-10-PCS; 2024-12-27)
PROC: 5A09357 Assistance with Respiratory Ventilation, Less than 24 Consecutive Hours, Continuous Positive Airway Pressure (ICD-10-PCS; 2024-12-28)
PROC: 5A09357 Assistance with Respiratory Ventilation, Less than 24 Consecutive Hours, Continuous Positive Airway Pressure (ICD-10-PCS; 2024-12-29)
PROC: 5A09357 Assistance with Respiratory Ventilation, Less than 24 Consecutive Hours, Continuous Positive Airway Pressure (ICD-10-PCS; 2024-12-30)
PROC: 5A09357 Assistance with Respiratory Ventilation, Less than 24 Consecutive Hours, Continuous Positive Airway Pressure (ICD-10-PCS; 2024-12-31)
DX: N13.2 Hydronephrosis with renal and ureteral calculous obstruction (principal); J96.21 Acute and chronic respiratory failure with hypoxia; J15.69 Pneumonia due to other Gram-negative bacteria; J15.9 Unspecified bacterial pneumonia; J18.1 Lobar pneumonia, unspecified organism; J90 Pleural effusion, not elsewhere classified; F32.A Depression, unspecified; E66.01 Morbid (severe) obesity due to excess calories; T83.84XA Pain due to genitourinary prosthetic devices, implants and grafts, initial encounter; Y83.3 Surgical operation with formation of external stoma as the cause of abnormal reaction of the patient, or of later complication, without mention of misadventure at the time of the procedure; J98.11 Atelectasis; Z99.81 Dependence on supplemental oxygen; Z59.00 Homelessness unspecified; Z68.41 Body mass index [BMI] 40.0-44.9, adult; Z90.710 Acquired absence of both cervix and uterus; Z88.6 Allergy status to analgesic agent
CPT/HCPCS: 36415; 36600; 50432; 71045; 71250; 74018; 74176; 74425; 76000; 76604; 76857; 76942; 80048; 80053; 81001; 81025; 82360; 82805; 83605; 83880; 85025; 85610; 85730; 86850; 86900; 86901; 87070; 87205; 93005; 94660; 99152; A4344; G0378; J0330; J1100; J2003; J2250; J2405; J2704; Q9967